=== PATIENT | female | born 1995 | race Caucasian/White ===

== ENCOUNTER → 2018-01-30 13:41 | Outpatient (CLI) | payer OTHER, SELFPAY ==
[2018-01-31 16:42] LABS: HPV Reflexed? NOT INDICATED
== END ==
PROVIDERS: Family Provider Nurse Practitioner Primary Care; PCP Nurse Practitioner Primary Care; Visit Provider Obstetrics & Gynecology
DX: Z12.4 Encounter for screening for malignant neoplasm of cervix (principal)
CPT/HCPCS: 88175; G0145

== ENCOUNTER → 2018-06-19 11:17 | Outpatient (CLI) | payer OTHER, SELFPAY ==
[2017-02-14 22:56] VITALS: BMI 28.3
[2018-06-19 14:12] LABS: ALB/GLOB Ratio 1.1 RATIO (0.9-2.4); AST(SGOT) 27 U/L (15-37); Alanine Aminotransfer ALT/SGPT 62 U/L (13-56); Albumin, Serum 4.1 g/dL (3.2-5.0); Alkaline Phosphatase 90 U/L (45-117); Anion Gap 7 (5-15); BUN 8 mg/dL (7-18); BUN/Creat Ratio 11.1 RATIO (10-20); Calcium,Total 9.1 mg/dL (8.5-10.1); Chloride 105 mmol/L (98-107); Creatinine, Serum 0.72 mg/dL (0.55-1.02); EST Glomerular Filtration Rate 108 mL/min (>60); Est Glom Filt Rate - Afr Amer 130 mL/min (>60); Globulin 3.6 g/dL (2.2-4.2); Glucose 98 mg/dL (74-106); Potassium 3.9 mmol/L (3.5-5.1); Protein, Total 7.7 g/dL (6.4-8.2); Sodium Level 137 mmol/L (136-145)
== END ==
PROVIDERS: Visit Provider Obstetrics & Gynecology
DX: D18.01 Hemangioma of skin and subcutaneous tissue (principal)
CPT/HCPCS: 36415; 80053

== ENCOUNTER → 2018-07-20 10:17 | Outpatient (CLI) | payer OTHER, SELFPAY ==
[2017-02-14 22:56] VITALS: BMI 28.3
[2018-07-20 11:06] LABS: AST(SGOT) 23 U/L (15-37); Alanine Aminotransfer ALT/SGPT 34 U/L (13-56); Alkaline Phosphatase 75 U/L (45-117); Bilirubin, Direct 0.13 mg/dL (0.00-0.30); Globulin 3.4 g/dL (2.2-4.2); Glucose 80 mg/dL (74-106); Protein, Total 7.4 g/dL (6.4-8.2)
[2018-07-20 11:10] LABS: Insulin 8.5 mU/L (2.6-37.6)
== END ==
PROVIDERS: Visit Provider Obstetrics & Gynecology
DX: R79.89 Other specified abnormal findings of blood chemistry (principal)
CPT/HCPCS: 36415; 80076; 82947; 83525

== ENCOUNTER → 2018-11-25 | Outpatient (CLI) | payer OTHER, SELFPAY ==
[2018-11-24 12:54] VITALS: BMI 27.4
[2018-11-25 15:07] LABS: Mucous, Urine 0 SEEN /hpf (<or=2+)
[2018-11-25 15:14] LABS: Color, Urine Yellow (Yellow); Glucose, Dipstick Normal (Normal); Ketone-Dipstick Negative (Negative); Leukocyte Esterase-Dipstick 25 /ul (Negative); Nitrite-Dipstick Negative (Negative); Occult Blood-Urine 50 /ul (Negative); Protein-Dipstick Negative (Negative); Urine Bilirubin Dipstick Negative (Negative); Urine Clarity Sl. Cloudy (Clear); Urine Urobilinogen Normal (Normal)
[2018-11-25 15:25] LABS: Bacteria 3+ /hpf (None Seen); Red Blood Cells-Urine 5-10 SEEN /hpf (0-5); Squamous Epithelial Cells - UA 5-10 SEEN /hpf (5-10); White Blood Cells 10-25 SEEN /hpf (0-5)
== END | disposition home or self-care (01) ==
PROVIDERS: Referring Provider Physician Assistant Medical; Visit Provider Physician Assistant Medical
DX: R10.9 Unspecified abdominal pain (principal)
CPT/HCPCS: 81001; 87077; 87086; 87088; 87186

== ENCOUNTER → 2020-02-06 15:37 | Outpatient (CLI) | payer OTHER, SELFPAY ==
[2020-02-06 14:48] VITALS: BMI 30.7
[2020-02-06 16:19] LABS: Anion Gap 7 (5-15); BUN 10 mg/dL (7-18); BUN/Creat Ratio 13.6 RATIO (10-20); Calcium,Total 8.7 mg/dL (8.5-10.1); Chloride 107 mmol/L (98-107); Creatinine, Serum 0.74 mg/dL (0.55-1.02); EST Glomerular Filtration Rate 104 mL/min (>60); Est Glom Filt Rate - Afr Amer 125 mL/min (>60); Glucose 87 mg/dL (74-106); Potassium 3.8 mmol/L (3.5-5.1); Sodium Level 139 mmol/L (136-145)
== END ==
PROVIDERS: Referring Provider Internal Medicine Cardiovascular Disease; Visit Provider Internal Medicine Cardiovascular Disease
DX: Q25.1 Coarctation of aorta (principal)
CPT/HCPCS: 36415; 80048

== ENCOUNTER → 2020-02-18 14:45 | Outpatient (CLI) | payer OTHER, SELFPAY ==
[2020-02-06 14:48] VITALS: BMI 30.7
--- NOTE | 2020-02-18 14:48 | CT_ITS ---
STUDY: CT CHEST WITH CONTRAST REASON FOR EXAM: Female, 24 years old. Coarctation of the aorta. RADIATION DOSAGE (If Supplied By Facility): CTDIvol = ( 12.635 ) mGy, DLP = ( 440.44 ) mGycm TECHNIQUE: Transaxial imaging was performed following intravenous administration of 100 ml of ISOVUE-370 contrast material. Coronal and sagittal reformatted images were created. Individualized dose optimization techniques were used for this CT. COMPARISON: 05/10/16 FINDINGS: There are no pulmonary infiltrates or pleural effusions. There are no pulmonary nodules or masses. There is no pneumothorax. The heart and pericardium are within normal limits. 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 There is no thoracic lymphadenopathy. There is no evidence of thoracic aortic aneurysm. There stable mild coarctation of the aorta 1.5 cm distal to the origin of the left subclavian artery. Images through the upper abdomen demonstrate no significant abnormality. There are no destructive osseous lesions. There is no evidence of rib notching. CT/Chest WITH Contrast IMPRESSION: Stable mild coarctation of the aorta 1.5 cm distal to the left subclavian artery. No evidence of thoracic aortic aneurysm. Clear lungs. Electronically Signed: Meek Camarillo, at 22:29 EDT Tel , Service support ,
== END ==
PROVIDERS: Referring Provider Internal Medicine Cardiovascular Disease; Visit Provider Internal Medicine Cardiovascular Disease
DX: Q25.1 Coarctation of aorta (principal)
CPT/HCPCS: 71260; Q9967

== ENCOUNTER 2020-06-24 01:14 | Outpatient (RCR) | payer OTHER, SELFPAY ==
[2020-02-06 14:48] VITALS: BMI 30.7
== END 2020-07-12 23:59 ==
LOC: EMPH 01:14
PROVIDERS: Referring Provider Family Medicine Geriatric Medicine; Visit Provider Family Medicine Geriatric Medicine
DX: Z03.818 Encounter for observation for suspected exposure to other biological agents ruled out (principal)
CPT/HCPCS: 87426

== ENCOUNTER → 2020-11-04 | Outpatient (CLI) | payer OTHER, SELFPAY ==
[2020-02-06 14:48] VITALS: BMI 30.7
[2020-11-10 11:10] LABS: HPV Reflexed? NOT INDICATED
== END | disposition home or self-care (01) ==
LOC: LABSPEC 11-05 09:25
PROVIDERS: Visit Provider Obstetrics & Gynecology
DX: Z12.4 Encounter for screening for malignant neoplasm of cervix (principal)
CPT/HCPCS: 88175; G0145

== ENCOUNTER → 2021-02-23 11:05 | Outpatient (CLI) | payer OTHER, SELFPAY ==
[2021-02-23 12:06] LABS: Color, Urine Yellow (Yellow); Glucose, Dipstick Normal (Normal); Ketone-Dipstick Negative (Negative); Leukocyte Esterase-Dipstick Negative /ul (Negative); Nitrite-Dipstick Negative (Negative); Occult Blood-Urine Negative /ul (Negative); Protein-Dipstick Negative (Negative); Specific Gravity, Urine 1.015 (1.002-1.030); Urine Bilirubin Dipstick Negative (Negative); Urine Clarity Sl. Cloudy (Clear); Urine Urobilinogen Normal (Normal)
[2021-02-23 12:07] LABS: Absolute Lymphocyte Count 1.91 X10^3/uL (0.83-4.51); Absolute Neutrophil Count 4.6 X10^3/uL (2.0-7.7); Basophil# 0.03 X10^3/uL; Basophil% 0.4 % (0-1); Eosinophil# 0.04 X10^3/uL; Eosinophils% 0.6 % (0-5); Hematocrit 38.2 % (37-47); Hemoglobin 12.9 g/dL (12.0-15.0); Lymphocyte # 1.91 X10^3/ul (0.83-4.51); Mean Corp Hgb Conc 33.8 g/dL (32-36); Mean Corpuscular Hgb 28.8 pg (27.0-32.0); Mean Corpuscular Volume 85.3 fL (81-99); Mean Platelet Vol. 9.7 fl (6.2-12.0); Monocyte# 0.47 X10^3/uL; Monocyte% 6.6 % (0-10); NRBC Flagged by Analyzer 0 % (0-5); Platelet Count 294 K/mm3 (150-450); RBC Distribution Width CV 12.3 % (11.6-14.6); RBC Distribution Width SD 38.2 fl (35.1-43.9); Red Blood Count 4.48 M/mm3 (4.2-5.4); White Blood Count 7.1 K/mm3 (4.4-11.0)
[2021-02-23 12:17] LABS: Amphetamine Urine VISTA NEGATIVE (<1000 ng/mL); Barbiturate Urine VISTA NEGATIVE (< 200 ng/mL); Benzodiazepine Urine VISTA NEGATIVE (< 200 ng/mL); Cocaine Urine VISTA NEGATIVE (< 300 ng/mL); Ecstacy Urine VISTA NEGATIVE (< 500 ng/mL); Methadone Urine VISTA NEGATIVE (< 300 ng/mL); PCP Urine VISTA NEGATIVE (< 25 ng/mL); THC Urine VISTA NEGATIVE (< 50 ng/mL); Vista UDS pH Range 6
[2021-02-23 12:23] LABS: Thyroid Stim Hormone (TSH) 2.31 uIU/mL (0.358-3.74)
[2021-02-23 12:53] LABS: HIV - WCH Non-Reactive (Nonreactive); Hepatitis B Surface Antigen Non-Reactive (Nonreactive); Hepatitis C Antibody Non-Reactive (Nonreactive); Rubella IgG Reactive (Nonreactive); Syphilis Antibodies Non-reactive
[2021-02-25 07:08] LABS: Chlamydia By Nucleic Acid AMP Negative (Negative)
[2021-02-25 21:05] LABS: Gonococcus By Nucleic Acid AMP Negative (Negative)
== END ==
PROVIDERS: PCP Family Medicine; Visit Provider Obstetrics & Gynecology
DX: Z34.81 Encounter for supervision of other normal pregnancy, first trimester (principal); Z11.3 Encounter for screening for infections with a predominantly sexual mode of transmission
CPT/HCPCS: 36415; 80307; 81002; 84443; 85025; 86703; 86762; 86780; 86803; 87086; 87340; 87491; 87591

== ENCOUNTER → 2021-03-12 09:46 | Outpatient (CLI) | payer OTHER, SELFPAY ==
--- NOTE | 2021-03-12 09:47 | ECHOD_ITS ---
Reason For Study: ASD Repair Procedure This was a 2D Doppler, Color Flow transthoracic echocardiogram. Exam performed in department. Left Ventricle Normal LV size. Left ventricular systolic function is normal. The estimated ejection fraction is 55 %. Normal diastology for age. No regional wall motion abnormalities noted. Right Ventricle Normal RV size. Normal systolic function. Atria Normal left atrium. Normal right atrium. Tricuspid Valve Normal tricuspid valve. Aortic Valve Normal aortic valve. Trisinus/trileaflet aortic valve. Pulmonic Valve Normal pulmonic valve. Great Vessels Normal aortic root. Aortic coarctation is present. Approximately 20 mmHg across the coarctation. The pulmonary artery is normal size. Normal inferior vena cava. Pericardium/Pleural No pericardial effusion. MMode/2D Measurements & Calculations LVIDd: 4.6 cm IVSd: 0.82 cm Ao root diam: 2.4 cm LVIDs: 2.8 cm LVPWd: 0.89 cm RVDd: 3.5 cm FS: 40.5 % LAV(MOD-bp): 53.2 ml LVAd ap4: 29.7 cm2 SV(MOD-sp4): 55.2 ml LAV(MOD-bp) Indexed: 29.6 ml/m2 LVLd ap4: 8.1 cm LAV(MOD-sp2): 54.4 ml EDV(MOD-sp4): 91.2 ml LAV(MOD-sp4): 52.0 ml EDV(sp4-el): 92.1 ml LVAs ap4: 16.8 cm2 LVLs ap4: 6.7 cm ESV(MOD-sp4): 36.0 ml ESV(sp4-el): 36.1 ml EF(MOD-sp4): 60.5 % EF(sp4-el): 60.8 % SV(sp4-el): 56.0 ml LA dimension(2D): 3.5 cm LA A4 area: 17.9 cm2 RA A4 area: 14.6 cm2 Doppler Measurements & Calculations MV E max jesus: 117.5 cm/sec Lat Peak E' Jesus: 18.0 cm/sec Med Peak E' Jesus: 10.7 cm/sec MV A max jesus: 50.3 cm/sec E/E' lat: 6.5 E/E' med: 10.9 MV E/A: 2.3 Ao V2 max: 155.2 cm/sec LV V1 max: 135.0 cm/sec PA V2 max: 83.7 cm/sec Ao max P.6 mmHg LV V1 max P.3 mmHg TR max jesus: 179.3 cm/sec TR max P.9 mmHg ECHO/Echo Complete Interpretation Summary Normal LV size. Left ventricular systolic function is normal. The estimated ejection fraction is 55 %. Aortic coarctation is present. Approximately 20 mmHg across the coarctation. Ordering Physician: Ashly Grubbs Referring Physician: Brook Negro Performed By: Snehal Preston RDCS
== END ==
PROVIDERS: PCP Family Medicine; Referring Provider Obstetrics & Gynecology; Visit Provider Obstetrics & Gynecology
DX: Q25.1 Coarctation of aorta (principal); I51.9 Heart disease, unspecified
CPT/HCPCS: 93306

== ENCOUNTER → 2021-03-23 07:52 | Outpatient (CLI) | payer OTHER, SELFPAY ==
--- NOTE | 2021-03-23 08:35 | US_ITS ---
STUDY: FIRST TRIMESTER OBSTETRICAL ULTRASOUND REASON FOR EXAM: Female, 25 years old LMP: 01/07/2021. TECHNIQUE: Transabdominal TECHNICAL QUALITY: Adequate. PRIOR ULTRASOUND: None. FINDINGS: There is visualization of a single gestational sac in a normal intrauterine position. The mean sac diameter (MSD) measures 5.98 cm. The gestational sac shape is within normal limits. There is no demonstrated yolk sac. The placenta is non-visualized. There is visualization of a live embryo. The crown-rump length (CRL) measures 4.12 cm, indicating an estimated gestational age (EGA) of 11 weeks, 0 days. There is demonstrated cardiac activity with a heart rate of 170 bpm. The estimated gestation age (EGA) by LMP is 10 weeks, 5 days. The estimated date of delivery (NAMITA) by LMP is 10/14/2021. The estimated gestation age (EGA) by US is 11 weeks, 0 days. The estimated date of delivery (NAMITA) by US is 10/12/2021. The uterus measures 11.1 cm x 10.5 cm x 6.4 cm. There is no demonstrated uterine fibroid. The cervix is closed. The right ovary was not visualized. The left ovary measures 3 cm x 2.6 cm x 1.5 cm. There is no left ovarian cyst. There is no visualized left adnexal mass or complex lesion. There is no fluid in the cul de sac. US/Init OB < 14Wks US IMPRESSION: Single live intrauterine gestation with a mean gestational age of 11 weeks. Electronically Signed: Conrad Root MD at 15:29 EDT , Service support ,
== END ==
PROVIDERS: PCP Family Medicine; Referring Provider Obstetrics & Gynecology; Visit Provider Obstetrics & Gynecology
DX: Z34.81 Encounter for supervision of other normal pregnancy, first trimester (principal)
CPT/HCPCS: 76801

== ENCOUNTER 2021-07-16 09:32 | Outpatient (CLI) | payer OTHER, SELFPAY ==
[2021-07-16 10:08] LABS: Hemoglobin 12.2 g/dL (12.0-15.0); Mean Corp Hgb Conc 34.9 g/dL (32-36); Mean Corpuscular Volume 86.2 fL (81-99); Mean Platelet Vol. 9.8 fl (6.2-12.0); Platelet Count 285 K/mm3 (150-450); RBC Distribution Width CV 12.6 % (11.6-14.6); RBC Distribution Width SD 39.7 fl (35.1-43.9); Red Blood Count 4.06 M/mm3 (4.2-5.4); White Blood Count 12.8 K/mm3 (4.4-11.0)
[2021-07-16 10:13] LABS: Glucose Challenge Gest 1H 50g 94 mg/dL (70-140)
== END 2021-07-16 23:59 | disposition short-term general hospital (02) ==
LOC: WOBLAB 09:35
PROVIDERS: PCP Family Medicine; Visit Provider Obstetrics & Gynecology
DX: Z34.82 Encounter for supervision of other normal pregnancy, second trimester (principal)
CPT/HCPCS: 36415; 82950; 85027

== ENCOUNTER 2021-07-21 12:21 | Outpatient (CLI) | payer OTHER, SELFPAY ==
--- NOTE | 2021-07-21 12:25 | US_ITS ---
STUDY: SECOND AND THIRD TRIMESTER OBSTETRICAL ULTRASOUND REASON FOR EXAM: Female, 25 years old GROWTH LMP: 01/07/2021. TECHNIQUE: Transabdominal TECHNICAL QUALITY: Adequate. PRIOR ULTRASOUND: Comparison is made with prior study dated 03/23/2021. FINDINGS: There is a single intrauterine fetus. The fetus is in a cephalic presentation. There is demonstrated cardiac activity with a heart rate of 147 bpm. There is a normal amniotic fluid volume. The largest amniotic fluid pocket measures 6.69 cm. The amniotic fluid index (ELVIS) is 18.2 to cm. The placenta is posterior in location and is not low lying. There are Grade 1 placental changes. The cervix measures 6 cm in length. The adnexal regions are not visualized. BIOMETRY: BPD: 7.04 cm: 28 weeks, 1 days HC: 26.41 cm: 28 weeks, 5 days AC: 23.67 cm: 27 weeks, 6 days FL: 5.15 cm: 27 weeks, 3 days CI: 77.6% FL/BPD: 73.2% FL/HC: FL/AC: 21.8% HC/AC: 1.12 age by current US: 28 weeks, 0 days. NAMITA by current US: 10/13/2021. Estimated weight: 1149 grams, +/- 172 grams, 40.4 %. age by prior US: 28 weeks, 1 days. NAMITA by prior US: 10/12/2021. Age by LMP: 27 weeks, 6 days. NAMITA by LMP: 10/14/2021. US/OB Limited With Biometrics IMPRESSION: Single live intrauterine gestation with a mean gestational age of 28 weeks and 1 day. The measurement obtained today fall within the normal expected range. Electronically Signed: Conrad Root MD at 8:52 EST ,
== END 2021-07-21 23:59 | disposition home or self-care (01) ==
LOC: OPUS 12:22
PROVIDERS: PCP Family Medicine; Referring Provider Obstetrics & Gynecology; Visit Provider Obstetrics & Gynecology
DX: O99.892 Other specified diseases and conditions complicating childbirth (principal); Q21.1 Atrial septal defect; Q25.1 Coarctation of aorta; Z3A.00 Weeks of gestation of pregnancy not specified
CPT/HCPCS: 76816

== ENCOUNTER 2021-08-18 13:49 | Outpatient (CLI) | payer OTHER, SELFPAY ==
--- NOTE | 2021-08-18 13:52 | ECHOD_ITS ---
Reason For Study: Procedure This was a 2D Doppler, Color Flow transthoracic echocardiogram. Exam performed in department. Left Ventricle Normal LV size. Left ventricular systolic function is normal. The estimated ejection fraction is 60 %. Normal diastology for age. No regional wall motion abnormalities noted. Right Ventricle Normal RV size. Normal systolic function. Atria Normal left atrium. Normal right atrium. Mitral Valve Normal mitral valve. Tricuspid Valve Normal tricuspid valve. Aortic Valve Trisinus/trileaflet aortic valve. Pulmonic Valve Normal pulmonic valve. Great Vessels Normal aortic root. Mild coarctation noted post subclavian. Pericardium/Pleural No pericardial effusion. MMode/2D Measurements & Calculations LVIDd: 5.0 cm IVSd: 0.74 cm Ao root diam: 2.7 cm LVIDs: 3.3 cm LVPWd: 0.92 cm RVDd: 4.4 cm FS: 33.7 % LAV(MOD-bp): 59.1 ml LVAd ap4: 32.3 cm2 SV(MOD-sp4): 65.6 ml LAV(MOD-bp) Indexed: 31.2 ml/m2 LVLd ap4: 7.9 cm LAV(MOD-sp2): 55.6 ml EDV(MOD-sp4): 109.9 ml LAV(MOD-sp4): 56.4 ml EDV(sp4-el): 112.6 ml LVAs ap4: 18.2 cm2 LVLs ap4: 6.2 cm ESV(MOD-sp4): 44.3 ml ESV(sp4-el): 45.1 ml EF(MOD-sp4): 59.7 % EF(sp4-el): 60.0 % SV(sp4-el): 67.6 ml LA A4 area: 20.2 cm2 LA dimension(2D): 3.8 cm RA A4 area: 18.2 cm2 Time Measurements MV dec time: 0.25 sec Doppler Measurements & Calculations MV E max jesus: 122.7 cm/sec Lat Peak E' Jesus: 22.3 cm/sec Med Peak E' Jesus: 15.4 cm/sec MV A max jesus: 73.8 cm/sec E/E' lat: 5.5 E/E' med: 8.0 MV E/A: 1.7 Ao V2 max: 167.5 cm/sec LV V1 max: 144.1 cm/sec PA V2 max: 103.8 cm/sec Ao max P.2 mmHg LV V1 max P.3 mmHg ECHO/Echo Complete Interpretation Summary Normal LV size. Left ventricular systolic function is normal. The estimated ejection fraction is 60 %. Mild coarctation noted post subclavian. Structurally normal valves. Ordering Physician: Ashly Grubbs Referring Physician: GREGG MILLARD Performed By: Taryn Aleman RDCS
== END 2021-08-18 23:59 | disposition home or self-care (01) ==
LOC: CVS 13:50
PROVIDERS: PCP Family Medicine; Referring Provider Obstetrics & Gynecology; Visit Provider Obstetrics & Gynecology
DX: Z34.83 Encounter for supervision of other normal pregnancy, third trimester (principal); Z87.74 Personal history of (corrected) congenital malformations of heart and circulatory system
CPT/HCPCS: 93306

== ENCOUNTER 2021-08-20 12:20 | Outpatient (CLI) | payer OTHER, SELFPAY ==
--- NOTE | 2021-08-20 12:22 | US_ITS ---
STUDY: SECOND AND THIRD TRIMESTER OBSTETRICAL ULTRASOUND - LIMITED REASON FOR EXAM: Female, 25 years old LMP: 12/31/2020. PRIOR ULTRASOUND: Comparison is made with prior study dated 07/21/2021. TECHNIQUE: Transabdominal TECHNICAL QUALITY: Adequate. FINDINGS: There is a single intrauterine fetus. The fetus is in a cephalic presentation. There is demonstrated cardiac activity with a heart rate of 132 bpm. There is a normal amniotic fluid volume. The largest amniotic fluid pocket measures 6.75 cm. The amniotic fluid index (ELVIS) is 18.65 cm. The placenta is fundal in location. There are Grade 1 placental changes. The cervix measures 3.6 cm in length. BIOMETRY: BPD: 8.147: 32 weeks, 5 days HC: 30.16 cm: 33 weeks, 3 days AC: 28.88 cm: 32 weeks, 6 days FL: 5.96 cm: 31 weeks, 0 days Age by LMP: 32 weeks, 1 days. NAMITA by LMP: 10/14/2021. age by prior US: 32 weeks, 2 days. NAMITA by prior US: 10/13/2021. age by current US: 32 weeks, 4 days. NAMITA by current US: 10/11/2021. Estimated weight: 1970 grams, +/- 295 grams, 48 percentile. US/OB Limited With Biometrics IMPRESSION: Single live uterine gestation with a mean gestational age of 32 weeks and 2 days. The measurements obtained today fall within the normal expected range Electronically Signed: Conrad Root MD at 14:48 EST ,
== END 2021-08-20 23:59 | disposition home or self-care (01) ==
LOC: US 12:21
PROVIDERS: PCP Family Medicine; Referring Provider Obstetrics & Gynecology; Visit Provider Obstetrics & Gynecology
DX: Z34.83 Encounter for supervision of other normal pregnancy, third trimester (principal)
CPT/HCPCS: 76816

== ENCOUNTER 2021-08-24 18:15 | Outpatient (CLI) | payer OTHER, SELFPAY ==
[2021-08-24 18:39] VITALS: BP 122/75; PULSE 86; TEMP 36.9; O2SAT 98
[2021-08-24 18:41] VITALS: BMI 33.0
--- NOTE | 2021-08-24 20:00 | OB.TRI.NOTE ---
HPI - General HPI Narrative MADDISON ADAIR, is a 25 F G1 who presents at 32 5/7 weeks gestation for scheduled NST. She has a hx aortic coarctation and ASD post repair. PFSH PFSH Medical History (Updated 08/29/21 @ 08:[address] Ashly Pickard MD) ASD (atrial septal defect) Coarctation of aorta Obesity Home Medications vitamin no.102-iron 90 mg-folate 1 mg-dha 200 mg capsule 1 cap PO DAILY 02/06/20 [History Last Taken 08/24/21] aspirin 81 mg tablet,delayed release 81 mg PO DAILY 03/19/21 [History Last Taken 08/24/21] calcium 500 mg PO DAILY 08/24/21 [History Last Taken 08/24/21] famotidine [Pepcid] 10 mg PO DAILY 08/24/21 [History Last Taken Unknown] Allergy/AdvReac Type Severity Reaction Status Date / Time latex AdvReac Itching Verified 08/24/21 18:42 Family History Mother Hypertension Surgical History H/O atrial septal defect repair (2002) History of wisdom tooth extraction Social History (Updated 08/29/21 @ 08:[address] Ashly Pickard MD) Smoking Status: Never smoker alcohol intake: never details: not during History 1 Elective abortions Hx Para Spontaneous abortions Hx # Term Pregnancies Ectopic pregnancies Hx # Pregnancies Multiple births # of living children NST FHR Rate Baby A Baseline: 130 Variability:: Moderate Accelerations:: 15 x 15 Decelerations:: None NST Reactive:: Appropriate for gestational age and Non-Reactive FHR Category:: Category I Uterine Activity:: 0/10 Assessment & Plan (1) 32 weeks gestation of : PLAN: Cat I FHR, reassuring d/c home, continue weekly NST
== END 2021-08-24 23:59 | disposition home or self-care (01) ==
LOC: WPOUT 18:35 → WP 18:35
PROVIDERS: PCP Family Medicine; Visit Provider Obstetrics & Gynecology
DX: O99.213 Obesity complicating pregnancy, third trimester (principal); Z3A.32 32 weeks gestation of pregnancy; Z79.82 Long term (current) use of aspirin; E66.9 Obesity, unspecified; Z87.74 Personal history of (corrected) congenital malformations of heart and circulatory system
CPT/HCPCS: 59025

== ENCOUNTER 2021-09-01 11:55 | Outpatient (CLI) | payer OTHER, SELFPAY ==
[2021-09-01 12:01] VITALS: BMI 33.3
[2021-09-01 12:04] VITALS: BP 124/77; PULSE 76; TEMP 36.2
--- NOTE | 2021-09-18 00:11 | OB.TRI.NOTE ---
HPI - General HPI Narrative MADDISON ADAIR, is a 26 F who presents for scheduled NST. Maternal Data Information NAMITA Calculator Estimated Delivery Date Method Current WG Current Estimate 10/14/21 Manual 38w 5d PFSH [facility] Medical History (Updated 10/05/21 @ 19:[address] Ashly Pickard MD) ASD (atrial septal defect) Cardiology follow-up encounter Coarctation of aorta Gastric reflux High cholesterol History of echocardiogram History of edema History of stress test Non-smoker Obesity Home Medications vitamin no.102-iron 90 mg-folate 1 mg-dha 200 mg capsule 1 cap PO DAILY 02/06/20 [History Last Taken 10/04/21 21:00] aspirin 81 mg tablet,delayed release 81 mg PO DAILY 03/19/21 [History Last Taken 10/04/21 21:00] calcium 500 mg PO DAILY 08/24/21 [History Last Taken 10/04/21 21:00] famotidine [Pepcid] 10 mg PO DAILY 08/24/21 [History Last Taken 10/04/21 21:00] Allergy/AdvReac Type Severity Reaction Status Date / Time latex AdvReac Itching Verified 10/05/21 18:07 Family History Mother Hypertension Surgical History (Updated 09/08/21 @ 13:28 by Kenya Spain) H/O atrial septal defect repair (2002) History of cardiac catheterization History of wisdom tooth extraction Social History (Updated 08/29/21 @ 08:[address] Ashly Pickard MD) Smoking Status: Never smoker alcohol intake: never details: not during History 1 Elective abortions Hx Para Spontaneous abortions Hx # Term Pregnancies Ectopic pregnancies Hx # Pregnancies Multiple births # of living children NST FHR Rate Baby A Baseline: 125 Accelerations:: 15 x 15 Decelerations:: None NST Reactive:: Yes FHR Category:: Category I Uterine Activity:: 0 Assessment & Plan (1) : QUALIFIERS: Weeks of gestation: 35 weeks Qualified Code(s): Z3A.35 - 35 weeks gestation of COMMENT: 35wga PLAN: Cat I FHR d/c home
== END 2021-09-01 23:59 | disposition home or self-care (01) ==
LOC: WPOUT 12:00 → WP 12:00
PROVIDERS: PCP Family Medicine; Referring Provider Obstetrics & Gynecology; Visit Provider Obstetrics & Gynecology
DX: O99.613 Diseases of the digestive system complicating pregnancy, third trimester (principal); K21.9 Gastro-esophageal reflux disease without esophagitis; O99.213 Obesity complicating pregnancy, third trimester; E66.9 Obesity, unspecified; Z79.82 Long term (current) use of aspirin; Z3A.35 35 weeks gestation of pregnancy
CPT/HCPCS: 59025

== ENCOUNTER 2021-09-09 17:45 | Outpatient (CLI) | payer OTHER, SELFPAY ==
[2021-09-09 18:05] VITALS: BP 134/80; PULSE 87; TEMP 36.4
--- NOTE | 2021-09-09 18:37 | OB.TRI.NOTE ---
HPI - General HPI Narrative MADDISON ADAIR, is a 26 F who presents for NST [facility] Medical History (Updated 09/10/21 @ 08:[address] Turner Hoang MD) ASD (atrial septal defect) Cardiology follow-up encounter Coarctation of aorta Gastric reflux High cholesterol History of echocardiogram History of edema History of stress test Non-smoker Obesity Home Medications vitamin no.102-iron 90 mg-folate 1 mg-dha 200 mg capsule 1 cap PO DAILY 02/06/20 [History Last Taken 08/31/21] aspirin 81 mg tablet,delayed release 81 mg PO DAILY 03/19/21 [History Last Taken 08/31/21] calcium 500 mg PO DAILY 08/24/21 [History Last Taken 08/31/21] famotidine [Pepcid] 10 mg PO DAILY 08/24/21 [History Last Taken 08/31/21] Allergy/AdvReac Type Severity Reaction Status Date / Time latex AdvReac Itching Verified 09/08/21 13:21 Family History Mother Hypertension Surgical History (Updated 09/08/21 @ 13:28 by Kenya Spain) H/O atrial septal defect repair (2002) History of cardiac catheterization History of wisdom tooth extraction Social History (Updated 08/29/21 @ 08:[address] Ashly Pickard MD) Smoking Status: Never smoker alcohol intake: never details: not during History 1 Elective abortions Hx Para Spontaneous abortions Hx # Term Pregnancies Ectopic pregnancies Hx # Pregnancies Multiple births # of living children NST FHR Rate Baby A Baseline: 130 Variability:: Moderate Accelerations:: 15 x 15 Decelerations:: None NST Reactive:: Yes Uterine Activity:: quiet Assessment & Plan (1) : PLAN: Patient arrives for scheduled NST, reactive. Okay to discharge home
== END 2021-09-09 23:59 | disposition home or self-care (01) ==
LOC: WPOUT 17:52 → WP 17:53
PROVIDERS: PCP Family Medicine; Visit Provider Obstetrics & Gynecology
DX: O99.891 Other specified diseases and conditions complicating pregnancy (principal); Q21.1 Atrial septal defect; Z79.82 Long term (current) use of aspirin; O99.619 Diseases of the digestive system complicating pregnancy, unspecified trimester; K21.9 Gastro-esophageal reflux disease without esophagitis; Z3A.00 Weeks of gestation of pregnancy not specified
CPT/HCPCS: 59025; 59050; 99218; G0378

== ENCOUNTER 2021-09-14 17:00 | Outpatient (CLI) | payer OTHER, SELFPAY ==
[2021-09-14] VITALS (9 sets, daily range): BP systolic 125–142; BP diastolic 68–83; PULSE 71–86; BMI 33.7
[2021-09-14 17:52] LABS: Hematocrit 35.5 % (37-47); Hemoglobin 12.2 g/dL (12.0-15.0); Mean Corp Hgb Conc 34.4 g/dL (32-36); Mean Corpuscular Hgb 28.6 pg (27.0-32.0); Mean Corpuscular Volume 83.1 fL (81-99); Mean Platelet Vol. 9.9 fl (6.2-12.0); Platelet Count 251 K/mm3 (150-450); RBC Distribution Width CV 12.5 % (11.6-14.6); RBC Distribution Width SD 37.5 fl (35.1-43.9); Red Blood Count 4.27 M/mm3 (4.2-5.4); White Blood Count 12.5 K/mm3 (4.4-11.0)
[2021-09-14] MEDS: Lactated Ringers 1,000 ML 250 ML IV (18:00)
[2021-09-14 18:01] LABS: International Normalized Ratio 0.9; Partial Thromboplast Time 26.1 Seconds (24.1-36.2); Prothrombin Time (Protime)PT. 11.8 SECONDS (11.7-14.9)
[2021-09-14 18:07] LABS: Protein, Urine (Random) < 6.0 mg/dL (<11.9)
[2021-09-14 18:38] LABS: AST(SGOT) 22 U/L (15-37); Alanine Aminotransfer ALT/SGPT 25 U/L (13-56); EST Glomerular Filtration Rate 159 mL/min (>60); Est Glom Filt Rate - Afr Amer 192 mL/min (>60); Estimated Creatinine Clearance 148.53 ml/min; LDH 201 U/L (84-246); Uric Acid 4.7 mg/dL (2.6-6.0)
--- NOTE | 2021-09-15 07:13 | OB.TRI.NOTE ---
HPI - General HPI Narrative MADDISON ADAIR, is a 26 F at 35 5/7wga (NAMITA 10/24/21) who presents for BP monitoring. She was sent from the office for elevated BPs. Denies headache, vision changes or abdominal pain. PFSH [facility] Medical History (Updated 09/15/21 @ 07:[address] Ashly Pickard MD) ASD (atrial septal defect) Cardiology follow-up encounter Coarctation of aorta Gastric reflux High cholesterol History of echocardiogram History of edema History of stress test Non-smoker Obesity Home Medications vitamin no.102-iron 90 mg-folate 1 mg-dha 200 mg capsule 1 cap PO DAILY 02/06/20 [History Last Taken 09/13/21] aspirin 81 mg tablet,delayed release 81 mg PO DAILY 03/19/21 [History Last Taken 09/13/21 81 mg] calcium 500 mg PO DAILY 08/24/21 [History Last Taken 09/13/21] famotidine [Pepcid] 10 mg PO DAILY 08/24/21 [History Last Taken 09/13/21 20 mg] Allergy/AdvReac Type Severity Reaction Status Date / Time latex AdvReac Itching Verified 09/08/21 13:21 Family History Mother Hypertension Surgical History (Updated 09/08/21 @ 13:28 by Kenya Spain) H/O atrial septal defect repair (2002) History of cardiac catheterization History of wisdom tooth extraction Social History (Updated 08/29/21 @ 08:[address] Ashly Pickard MD) Smoking Status: Never smoker alcohol intake: never details: not during History 1 Elective abortions Hx Para Spontaneous abortions Hx # Term Pregnancies Ectopic pregnancies Hx # Pregnancies Multiple births # of living children NST FHR Rate Baby A Baseline: 130 Variability:: Moderate Accelerations:: 15 x 15 Decelerations:: None NST Reactive:: Yes FHR Category:: Category I Uterine Activity:: irritability Assessment & Plan (1) : QUALIFIERS: Weeks of gestation: 35 weeks Qualified Code(s): Z3A.35 - 35 weeks gestation of PLAN: Cat I FHR, status reassuring (2) Elevated blood pressure reading without diagnosis of hypertension: PLAN: Labs for preeclampsia negative D/C home f/u next week
== END 2021-09-14 19:11 | disposition home or self-care (01) ==
LOC: WPOUT 17:10 → WP 17:10
PROVIDERS: PCP Family Medicine; Referring Provider Obstetrics & Gynecology; Visit Provider Obstetrics & Gynecology
DX: O26.893 Other specified pregnancy related conditions, third trimester (principal); Z3A.35 35 weeks gestation of pregnancy; R03.0 Elevated blood-pressure reading, without diagnosis of hypertension; O99.613 Diseases of the digestive system complicating pregnancy, third trimester; K21.9 Gastro-esophageal reflux disease without esophagitis; O99.213 Obesity complicating pregnancy, third trimester; E66.9 Obesity, unspecified; Z79.82 Long term (current) use of aspirin; Z87.74 Personal history of (corrected) congenital malformations of heart and circulatory system
CPT/HCPCS: 96360; 96361 ×12; 36415; 59025; 59050; 82565; 82570; 83615; 84156; 84450; 84460; 84550; 85027; 85610; 85730; 99218; J7120; G0378

== ENCOUNTER 2021-09-16 14:27 | Outpatient (CLI) | payer OTHER, SELFPAY ==
--- NOTE | 2021-09-16 14:31 | US_ITS ---
STUDY: SECOND AND THIRD TRIMESTER OBSTETRICAL ULTRASOUND - LIMITED REASON FOR EXAM: Female, 26 years old GROWTH LMP: 01/07/2021. PRIOR ULTRASOUND: Comparison is made with prior study dated 08/20/2021. TECHNIQUE: Transabdominal TECHNICAL QUALITY: Adequate. FINDINGS: There is a single intrauterine fetus. The fetus is in a cephalic presentation. There is demonstrated cardiac activity with a heart rate of 132 bpm. There is a normal amniotic fluid volume. The largest amniotic fluid pocket measures 4.3 cm. The amniotic fluid index (ELVIS) is 12.1 cm. The placenta is posterior in location and is not low lying. There are Grade 1 placental changes. BIOMETRY: BPD: 9 cm: 36 weeks, 2 days HC: 32.3 cm: 36 weeks, 3 days AC: 31.7 cm: 35 weeks, 4 days FL: 7.1 cm: 36 weeks, 1 days Age by LMP: 36 weeks, 0 days. NAMITA by LMP: 10/14/2021.. age by prior US: 36 weeks, 3 days. NAMITA by prior US: 10/11/2021.. age by current US: 36 weeks, 0 days. NAMITA by current US: 10/14/2021. Estimated weight: 2838 grams, +/- 427 grams, 53 percentile. US/OB Limited With Biometrics IMPRESSION: Single live uterine gestation with a mean gestational age of 36 weeks. Electronically Signed: Conrad Root MD at 15:04 EDT ,
== END 2021-09-16 23:59 | disposition home or self-care (01) ==
PROVIDERS: PCP Family Medicine; Visit Provider Obstetrics & Gynecology
DX: Z34.83 Encounter for supervision of other normal pregnancy, third trimester (principal)
CPT/HCPCS: 76816

== ENCOUNTER 2021-09-21 14:32 | Outpatient (CLI) | payer OTHER, SELFPAY | END 2021-09-21 23:59 | disposition home or self-care (01) | LOC: LABSPEC 14:46 | PROVIDERS: PCP Family Medicine; Visit Provider Obstetrics & Gynecology | DX: Z36.85 Encounter for antenatal screening for Streptococcus B (principal) | CPT/HCPCS: 87081 ==

== ENCOUNTER 2021-09-22 17:40 | Outpatient (CLI) | payer OTHER, SELFPAY ==
[2021-09-22 17:55] VITALS: BMI 33.7
[2021-09-22 18:01] VITALS: BP 137/78; PULSE 81; TEMP 36.5
[2021-09-22 18:31] VITALS: BP 130/70; PULSE 70
--- NOTE | 2021-09-26 09:05 | OB.TRI.HP_ITS ---
HPI - General HPI Narrative MADDISON ADAIR, is a 26 F who presents for nonstress test for hypertension. Patient denies any PIH symptoms. She is at 36 weeks 6 days gestation. [facility] Medical History (Updated 09/15/21 @ 07:[address] Ashly Pickard MD) ASD (atrial septal defect) Cardiology follow-up encounter Coarctation of aorta Gastric reflux High cholesterol History of echocardiogram History of edema History of stress test Non-smoker Obesity Home Medications vitamin no.102-iron 90 mg-folate 1 mg-dha 200 mg capsule 1 cap PO DAILY 02/06/20 [History Last Taken 09/13/21] aspirin 81 mg tablet,delayed release 81 mg PO DAILY 03/19/21 [History Last Taken 09/13/21 81 mg] calcium 500 mg PO DAILY 08/24/21 [History Last Taken 09/13/21] famotidine [Pepcid] 10 mg PO DAILY 08/24/21 [History Last Taken 09/13/21 20 mg] Allergy/AdvReac Type Severity Reaction Status Date / Time latex AdvReac Itching Verified 09/08/21 13:21 Family History Mother Hypertension Surgical History (Updated 09/08/21 @ 13:28 by Kenya Spain) H/O atrial septal defect repair (2002) History of cardiac catheterization History of wisdom tooth extraction Social History (Updated 08/29/21 @ 08:[address] Ashly Pickard MD) Smoking Status: Never smoker alcohol intake: never details: not during History 1 Elective abortions Hx Para Spontaneous abortions Hx # Term Pregnancies Ectopic pregnancies Hx # Pregnancies Multiple births # of living children NST FHR Rate Baby A NST Reactive:: Yes FHR Category:: Category I Assessment & Plan (1) Elevated blood pressure reading without diagnosis of hypertension: PLAN: 36+ week IUP with hypertension for routine nonstress test. NST reactive. Routine follow-up in the office.
== END 2021-09-22 23:59 | disposition home or self-care (01) ==
LOC: WP 17:52 → WPOUT 17:52
PROVIDERS: Visit Provider Obstetrics & Gynecology
DX: O26.893 Other specified pregnancy related conditions, third trimester (principal); R03.0 Elevated blood-pressure reading, without diagnosis of hypertension; Z3A.36 36 weeks gestation of pregnancy; O99.613 Diseases of the digestive system complicating pregnancy, third trimester; K21.9 Gastro-esophageal reflux disease without esophagitis; Z79.82 Long term (current) use of aspirin; O99.213 Obesity complicating pregnancy, third trimester; E66.9 Obesity, unspecified
CPT/HCPCS: 59025; 59050; 99218; G0378

== ENCOUNTER 2021-09-30 17:45 | Outpatient (CLI) | payer OTHER, SELFPAY ==
[2021-09-30 17:58] VITALS: BMI 34.8
--- NOTE | 2021-10-05 09:00 | OB.TRI.NOTE ---
HPI - General HPI Narrative MADDISON ADAIR, is a 26 F who presents at 38 weeks gestation for routine nonstress test for hypertension. Maternal Data Information Final NAMITA: 10/14/21 [facility] Medical History (Updated 09/15/21 @ 07:[address] Ashly Pickard MD) ASD (atrial septal defect) Cardiology follow-up encounter Coarctation of aorta Gastric reflux High cholesterol History of echocardiogram History of edema History of stress test Non-smoker Obesity Home Medications vitamin no.102-iron 90 mg-folate 1 mg-dha 200 mg capsule 1 cap PO DAILY 02/06/20 [History Last Taken 09/30/21 17:00] aspirin 81 mg tablet,delayed release 81 mg PO DAILY 03/19/21 [History Last Taken 09/30/21 17:00] calcium 500 mg PO DAILY 08/24/21 [History Last Taken 09/30/21 17:00] famotidine [Pepcid] 10 mg PO DAILY 08/24/21 [History Last Taken 09/30/21 17:00] Allergy/AdvReac Type Severity Reaction Status Date / Time latex AdvReac Itching Verified 09/30/21 18:00 Family History Mother Hypertension Surgical History (Updated 09/08/21 @ 13:28 by Kenya Spain) H/O atrial septal defect repair (2002) History of cardiac catheterization History of wisdom tooth extraction Social History (Updated 08/29/21 @ 08:[address] Ashly Pickard MD) Smoking Status: Never smoker alcohol intake: never details: not during History 1 Elective abortions Hx Para Spontaneous abortions Hx # Term Pregnancies Ectopic pregnancies Hx # Pregnancies Multiple births # of living children NST FHR Rate Baby A NST Reactive:: Yes FHR Category:: Category I Assessment & Plan (1) Elevated blood pressure reading without diagnosis of hypertension: PLAN: 38-week intrauterine for routine nonstress test for elevated blood pressures during . Reactive nonstress test. Continue routine follow-up and care in the office.
== END 2021-09-30 18:35 | disposition home or self-care (01) ==
LOC: WPOUT 17:57 → WP 17:58
PROVIDERS: Visit Provider Obstetrics & Gynecology
DX: O26.893 Other specified pregnancy related conditions, third trimester (principal); Z3A.38 38 weeks gestation of pregnancy; O99.613 Diseases of the digestive system complicating pregnancy, third trimester; K21.9 Gastro-esophageal reflux disease without esophagitis; O99.213 Obesity complicating pregnancy, third trimester; E66.9 Obesity, unspecified; R03.0 Elevated blood-pressure reading, without diagnosis of hypertension
CPT/HCPCS: 59025

== ENCOUNTER 2021-10-05 17:45 | Outpatient (CLI) | payer OTHER, SELFPAY ==
[2021-10-05 17:59] VITALS: BMI 35.2
[2021-10-05 18:01] VITALS: BP 139/82; PULSE 79; TEMP 36.8; O2SAT 98
--- NOTE | 2021-10-05 19:28 | OB.TRI.NOTE ---
HPI - General HPI Narrative MADDISON ADAIR, is a 26 F who presents at 38 5/7wga for scheduled NST Maternal Data Information NAMITA Calculator Estimated Delivery Date Method Current WG Current Estimate 10/14/21 Manual 38w 5d PFSH [facility] Medical History (Updated 10/05/21 @ 19:[address] Ashly Pickard MD) ASD (atrial septal defect) Cardiology follow-up encounter Coarctation of aorta Gastric reflux High cholesterol History of echocardiogram History of edema History of stress test Non-smoker Obesity Home Medications vitamin no.102-iron 90 mg-folate 1 mg-dha 200 mg capsule 1 cap PO DAILY 02/06/20 [History Last Taken 10/04/21 21:00] aspirin 81 mg tablet,delayed release 81 mg PO DAILY 03/19/21 [History Last Taken 10/04/21 21:00] calcium 500 mg PO DAILY 08/24/21 [History Last Taken 10/04/21 21:00] famotidine [Pepcid] 10 mg PO DAILY 08/24/21 [History Last Taken 10/04/21 21:00] Allergy/AdvReac Type Severity Reaction Status Date / Time latex AdvReac Itching Verified 10/05/21 18:07 Family History Mother Hypertension Surgical History (Updated 09/08/21 @ 13:28 by Kenya Spain) H/O atrial septal defect repair (2002) History of cardiac catheterization History of wisdom tooth extraction Social History (Updated 08/29/21 @ 08:[address] Ashly Pickard MD) Smoking Status: Never smoker alcohol intake: never details: not during History 1 Elective abortions Hx Para Spontaneous abortions Hx # Term Pregnancies Ectopic pregnancies Hx # Pregnancies Multiple births # of living children NST FHR Rate Baby A Baseline: 125 Variability:: Moderate Accelerations:: 15 x 15 Decelerations:: None NST Reactive:: Yes FHR Category:: Category I Uterine Activity:: 0/10 Assessment & Plan (1) 38 weeks gestation of : PLAN: REactive NST d/c (2) : QUALIFIERS: Weeks of gestation: 35 weeks Qualified Code(s): Z3A.35 - 35 weeks gestation of
== END 2021-10-05 18:30 | disposition home or self-care (01) ==
LOC: WPOUT 17:57 → WP 17:58
PROVIDERS: Visit Provider Obstetrics & Gynecology
DX: O99.613 Diseases of the digestive system complicating pregnancy, third trimester (principal); K21.9 Gastro-esophageal reflux disease without esophagitis; Z3A.35 35 weeks gestation of pregnancy; O99.213 Obesity complicating pregnancy, third trimester; E66.9 Obesity, unspecified; Z79.82 Long term (current) use of aspirin
CPT/HCPCS: 59025

== ENCOUNTER 2021-10-06 02:30 | Inpatient (IN) | payer OTHER, SELFPAY ==
[2021-10-06] VITALS (85 sets, daily range): BP systolic 109–152; BP diastolic 61–89; PULSE 57–91; RESP 14–18; TEMP 35.8–36.9; O2SAT 86–100; BMI 35.4
[2021-10-06] MEDS: 0.9% Saline Lock 10 ML Syringe IV (02:30)
[2021-10-06 02:41] LABS: Hematocrit 35.3 % (37-47); Hemoglobin 12.1 g/dL (12.0-15.0); Mean Corp Hgb Conc 34.3 g/dL (32-36); Mean Corpuscular Hgb 28.9 pg (27.0-32.0); Mean Corpuscular Volume 84.4 fL (81-99); Mean Platelet Vol. 10.1 fl (6.2-12.0); Platelet Count 247 K/mm3 (150-450); RBC Distribution Width CV 12.9 % (11.6-14.6); RBC Distribution Width SD 38.9 fl (35.1-43.9); Red Blood Count 4.18 M/mm3 (4.2-5.4)
[2021-10-06 02:57] LABS: Creatinine, Serum 0.54 mg/dL (0.55-1.02); EST Glomerular Filtration Rate 146 mL/min (>60); Est Glom Filt Rate - Afr Amer 177 mL/min (>60); Uric Acid 5.1 mg/dL (2.6-6.0)
[2021-10-06 02:59] LABS: ALB/GLOB Ratio 0.6 RATIO (0.9-2.4); AST(SGOT) 19 U/L (15-37); Alanine Aminotransfer ALT/SGPT 21 U/L (13-56); Albumin, Serum 2.6 g/dL (3.2-5.0); Alkaline Phosphatase 142 U/L (45-117); Anion Gap 8 (5-15); BUN 10 mg/dL (7-18); BUN/Creat Ratio 17.6 RATIO (10-20); Calcium,Total 8.9 mg/dL (8.5-10.1); Chloride 107 mmol/L (98-107); Creatinine, Serum 0.57 mg/dL (0.55-1.02); EST Glomerular Filtration Rate 138 mL/min (>60); Est Glom Filt Rate - Afr Amer 166 mL/min (>60); Glucose 117 mg/dL (74-106); LDH 183 U/L (84-246); Potassium 3.6 mmol/L (3.5-5.1); Protein, Total 6.6 g/dL (6.4-8.2); Sodium Level 136 mmol/L (136-145)
--- NOTE | 2021-10-06 03:02 | HP.PCM.OB_ITS ---
HPI - General General Date of Admission: 10/06/21 HPI Narrative MADDISON ADAIR, is a 26 F G1 who presents at 38 6/7 weeks gestation by LMP c/w first trimester US with c/o headache not alleviated with Tylenol. Serial BPs at work were elevated. Denies nausea, vomiting, chest pain, shortness of breath, vision changes, abdominal pain, vaginal bleeding, leaking of fluid. Reports good movement. Maternal Data Information NAMITA Calculator Estimated Delivery Date Method Current WG Current Estimate 10/14/21 Manual 38w 6d PFSH [facility] Medical History (Updated 10/06/21 @ 03:[address] Ashly Pickard MD) ASD (atrial septal defect) Cardiology follow-up encounter Coarctation of aorta Gastric reflux High cholesterol History of echocardiogram History of edema History of stress test Non-smoker Obesity Home Medications vitamin no.102-iron 90 mg-folate 1 mg-dha 200 mg capsule 1 cap PO DAILY 02/06/20 [History Last Taken 10/04/21 21:00] aspirin 81 mg tablet,delayed release 81 mg PO DAILY 03/19/21 [History Last Taken 10/04/21 21:00] calcium 500 mg PO DAILY 08/24/21 [History Last Taken 10/04/21 21:00] famotidine [Pepcid] 10 mg PO DAILY 08/24/21 [History Last Taken 10/04/21 21:00] Allergy/AdvReac Type Severity Reaction Status Date / Time latex AdvReac Itching Verified 10/05/21 18:07 sulfamethoxazole AdvReac Itching Verified 10/06/21 02:44 [From Febra] trimethoprim [From Febra] AdvReac Itching Verified 10/06/21 02:44 Family History Mother Hypertension Surgical History H/O atrial septal defect repair (2002) History of cardiac catheterization History of wisdom tooth extraction Social History Smoking Status: Never smoker alcohol intake: never details: not during History 1 Elective abortions Hx Para Spontaneous abortions Hx # Term Pregnancies Ectopic pregnancies Hx # Pregnancies Multiple births # of living children NST FHR Rate Baby A Baseline: 135 Variability:: Moderate Accelerations:: 15 x 15 Decelerations:: None NST Reactive:: Yes FHR Category:: Category I Uterine Activity:: 0/10 Vital Signs Vital Signs Vital Signs: 10/06/21 02:23 10/06/21 02:58 10/06/21 02:59 Temperature 96.5 F L Temperature Source Temporal Pulse Rate 81 75 Blood Pressure 141/80 H 150/89 H BP Systolic 141 150 BP Diastolic 80 89 Pulse Ox 98 100 Physical Exam Const alert, oriented x3 and no apparent distress HEENT normocephalic Resp normal respiratory effort, normal air movement and clear to auscultation bilaterally Cardio regular rate and regular rhythm Cardio Narrative: holosystolic murmur at LUSB GI normal to inspection, nondistended, normoactive bowel sounds, soft to palpation, non-tender and non-distended Inspection: gravid Narrative: SVE 07/11/-3, moderate, midposition Extremity no calf tenderness Extremity Narrative: 1+ b/l LE edema Labs Labs Labs: Blood Type A POSITIVE Hct 35.3 % (37-47) L Hgb 12.1 g/dL (12.0-15.0) Obstetrics US Syphilis Total Ab Non-reactive Rubella IgG Antibody Reactive (Nonreactive) Hep Bs Antigen Non-Reactive (Nonreactive) Chlamydia DNA (HEATHER) Negative (Negative) Neisseria gonorrhoeae DNA (HEATHER) Negative (Negative) HIV 1&2 Antibody Non-Reactive (Nonreactive) Glucose 1 Hr 50 gm 94 mg/dL (70-140) Assessment & Plan (1) 38 weeks gestation of : (2) Preeclampsia: QUALIFIERS: Trimester: third trimester Qualified Code(s): O14.93 - Unspecified pre-eclampsia, third trimester COMMENT: with severe features PLAN: Magnesium seizure prophylaxis Plan cytotec for IOL (3) ASD (atrial septal defect): COMMENT: ASD repair 2002 (4) Coarctation of aorta: COMMENT: no valvular disease PLAN: Reviewed history with MFM, ECHO with no worsening of mild coarct in third trimester and no valvular disease Fluid management to avoid dehydration to prevent dysrrhymthia, syncope - no restriction No indication for endocarditis prophylaxis or anti-hypertensive at this time Cardiology consultation
[2021-10-06] MEDS: Magnesium Sulfate 4gm/100mL 4 GM/100 ML IV.SOLN. IV (03:18)
[2021-10-06] MEDS: Lactated Ringers 1,000 ML 50 ML IV (03:19)
[2021-10-06] MEDS: Metoclopramide 10 MG/2 ML Vial 5 MG IV (03:20)
[2021-10-06 03:22] LABS: Creatinine, Urine (random) < 13.00 mg/dL (NO RANGE EST.); Protein, Urine (Random) 15.1 mg/dL (<11.9)
[2021-10-06] MEDS: Magnesium Sulfate 4gm/100mL 2 GM/50 ML IV.SOLN. IV (03:38)
[2021-10-06] MEDS: Magnesium Sulfate 20 GM/500 ML BAG IV ×3 (03:51→22:30)
[2021-10-06] MEDS: miSOPROStol 25 MCG TABLET PO (04:07)
[2021-10-06] MEDS: Acetaminophen 500 MG Tablet PO ×2 (05:23→11:34)
[2021-10-06] MEDS: miSOPROStol 50 MCG TABLET PO (08:55)
--- NOTE | 2021-10-06 09:18 | PCM.CONS.C ---
Documented by User: Nallely DAVIS, RYAN 10/06/21 09:48 Assessment & Plan Assessment/Plan (1) Elevated blood pressure reading without diagnosis of hypertension: (2) ASD (atrial septal defect): (3) Coarctation of aorta: PLAN: currently pt is stable, BP currently okay recommend close monitoring of BP readings HPI Consult Data Date of Consult: 10/06/21 HPI Narrative HPI Narrative: MADDISON ADAIR, is a 26 F that we were asked to consult on for monitoring of her Bp during her delivery with her hx of ASD repair and mild coarctation of her aorta, this was at the [facility]. Pt notes that over the last several weeks her BP has been creeping up. Last night she developed a CONTE and her BP was noted to be 150s/90. She was admitted for induction. Pt has not had any cardiac symptoms during this . She notes that her Bp was okay until a few weeks ago. [facility] Medical History ASD (atrial septal defect) Cardiology follow-up encounter Coarctation of aorta Gastric reflux High cholesterol History of echocardiogram History of edema History of stress test Non-smoker Obesity Home Medications vitamin no.102-iron 90 mg-folate 1 mg-dha 200 mg capsule 1 cap PO DAILY 02/06/20 [History Last Taken 10/04/21 21:00] aspirin 81 mg tablet,delayed release 81 mg PO DAILY 03/19/21 [History Last Taken 10/04/21 21:00] calcium 500 mg PO DAILY 08/24/21 [History Last Taken 10/04/21 21:00] famotidine [Pepcid] 10 mg PO DAILY 08/24/21 [History Last Taken 10/04/21 21:00] Allergy/AdvReac Type Severity Reaction Status Date / Time latex AdvReac Itching Verified 10/05/21 18:07 sulfamethoxazole AdvReac Itching Verified 10/06/21 02:44 [From Febra] trimethoprim [From ] AdvReac Itching Verified 10/06/21 02:44 Family History Mother Hypertension Surgical History H/O atrial septal defect repair (2002) History of cardiac catheterization History of wisdom tooth extraction Social History Smoking Status: Never smoker alcohol intake: never details: not during ROS Constitutional Constitutional: Reports as per HPI and headache(s) Eyes Eyes: Reports as per HPI Cardiovascular Cardiovascular: Reports as per HPI Respiratory/Chest Respiratory/Chest: Reports as per HPI Genitourinary Genitourinary: Reports as per HPI Neurologic Neurologic: Reports as per HPI Physical Exam Const alert, oriented x3, no apparent distress and healthy appearing HEENT normocephalic, head/scalp atraumatic, hearing grossly normal bilaterally, external ears normal, external nose normal and moist oral mucous membranes Eyes PERRL, EOMs intact bilaterally, conjunctivae normal and no scleral icterus Neck no lymphadenopathy, supple and no JVD Resp normal respiratory effort and clear to auscultation bilaterally Cardio regular rate, regular rhythm, S1 normal heart sound, S2 normal heart sound, no rub, no gallops, no clicks, no JVD and peripheral pulses 2+ throughout Heart Sounds: murmur systolic I/ soft GI Inspection: Extremity normal to inspection, normal capillary refill, no clubbing, cyanosis or edema and no pedal edema Neuro oriented x3, CN's II-XII intact bilaterally, moves all extremities and no focal motor deficits Psych cooperative and affect normal Risk Stratification Risk Stratification Applicable: No Objective Data Vital Signs: Vital Signs Temp Pulse Resp BP Pulse Ox 96.9 F L 77 18 128/79 H 98 10/06/21 09:08 10/06/21 09:08 10/06/21 09:08 10/06/21 09:08 10/06/21 09:08 Oxygen Delivery Method Room Air Weight: 206 lb 12.8 oz Body Mass Index (BMI) 35.4 Intake & Output: Intake and Output for Last 24 Hours 10/04/21 10/05/21 10/06/21 23:59 23:59 23:59 Intake Total 620.83 / 620.83 Output Total 1800 / 1800 Balance -1179.17 / -1179.17 Lab / Micro Data Result Diagrams: 10/06/21 02:30 10/06/21 02:30 Labs: Laboratory Results - last 24 hr 10/06/21 02:30: WBC 11.0, RBC 4.18 L, Hgb 12.1, Hct 35.3 L, MCV 84.4, MCH 28.9, MCHC 34.3, RDW Std Deviation 38.9, RDW Coeff of Odell 12.9, Plt Count 247, MPV 10.1 10/06/21 02:30: U Random Total Protein 15.1 H, Urine Creatinine < 13.00, Protein/Creatinin Ratio TNP 10/06/21 02:30: Creatinine 0.54 L, Est GFR (MDRD) Af Amer 177, Est GFR (MDRD) Non-Af 146, Uric Acid 5.1 10/06/21 02:30: Sodium 136, Potassium 3.6, Chloride 107, Carbon Dioxide 21.0, Anion Gap 8, BUN 10, Creatinine 0.57, Est GFR (MDRD) Af Amer 166, Est GFR (MDRD) Non-Af 138, BUN/Creatinine Ratio 17.6, Glucose 117 H, Calcium 8.9, Total Bilirubin 0.20, AST 19, ALT 21, Alkaline Phosphatase 142 H, Lactate Dehydrogenase 183, Total Protein 6.6, Albumin 2.6 L, Globulin 4.0, Albumin/Globulin Ratio 0.6 L 10/06/21 02:30: Blood Type A POSITIVE, Antibody Screen NEGATIVE Micro: Microbiology 10/06/21 04:45 Nasal Secretion SARS-CoV-2 Antigen (Rapid) - Final Cardiology Labs/Tests 10/06/21 02:30: WBC 11.0, RBC 4.18 L, Hgb 12.1, Hct 35.3 L, MCV 84.4, MCH 28.9, MCHC 34.3, Plt Count 247, MPV 10.1 10/06/21 02:30: Creatinine 0.54 L, Est GFR (MDRD) Af Amer 177, Est GFR (MDRD) Non-Af 146, Uric Acid 5.1 10/06/21 02:30: Sodium 136, Potassium 3.6, Chloride 107, Carbon Dioxide 21.0, Anion Gap 8, BUN 10, Creatinine 0.57, Est GFR (MDRD) Af Amer 166, Est GFR (MDRD) Non-Af 138, BUN/Creatinine Ratio 17.6, Glucose 117 H, Calcium 8.9, Total Bilirubin 0.20 ECHO: 08/2021: Normal LV size. Left ventricular systolic function is normal. The estimated ejection fraction is 60 %. Mild coarctation noted post subclavian. Structurally normal valves. Documented by User: Dr. Tanvir James MD 10/06/21 19:18 Assessment & Plan Addt'l Comments Addendum: The patient was independently evaluated and examined. In brief, this is a 26-year-old white female with a past cardiovascular history which has previously included an atrial septal defect repair-remote and a diagnosis of coarctation of the aorta-mild who has previously been evaluated in the outpatient setting by Dr. Cain who presents now for concerns of preeclampsia and the need for induction with a request by maternal- medicine for cardiology consultation. The patient states that from a cardiac standpoint she believes she is doing well she has had no ongoing concerning chest discomfort, difficulty breathing, orthopnea, PND, or significant lower extremity peripheral pitting edema. There is been no concerns of palpitations or near syncope or syncope. She underwent a transthoracic echocardiogram recently on 08-18-2021. The report was evaluated by Dr. Cain. The results are noted below. Interpretation Summary Normal LV size. Left ventricular systolic function is normal. The estimated ejection fraction is 60 %. Mild coarctation noted post subclavian. Structurally normal valves. She has not required any additional cardiovascular diagnostic studies. Thus far she seems to be stable while she undergoes her current medical therapy/care. On examination at this time her vital signs are noted to have a pulse of approximately 70 bpm and a blood pressure at approximately 110/60 mmHg. Her lungs are clear to auscultation percussion bilaterally. Her cardiovascular exam demonstrates a regular rhythm with a normal S1 and S2 without obvious rubs or gallops. She does have a soft grade 1/6 to 2/6 systolic murmur at the lower sternal border rating toward the LV outflow tract area. (She states she is a aware of a history of a cardiac murmur). Her lower extremities demonstrate no obvious significant bilateral lower extremity peripheral pitting edema. At the present time she carries the aforementioned diagnoses. She has undergone noninvasive valuation recently. She does not appear to have any acute findings on history or examination at this time. At the present time there does not appear to be the need for additional cardiovascular diagnostic studies/intervention. She will continue under the care of her [employer] team and maternal- medicine team with adjustment of medicines as deemed appropriate from their standpoint for her concerns of preeclampsia during her labor and delivery process. Thank you for allowing me to participate in the care of your patient. Please don't hesitate to call if any issues arise. The patient's case has been previously discussed and reviewed with RYAN Betancur as well as Dr. Marilyn Pickard. HPI Consult Data Date of Consult: 10/06/21 [facility] Medical History ASD (atrial septal defect) Cardiology follow-up encounter Coarctation of aorta Gastric reflux High cholesterol History of echocardiogram History of edema History of stress test Non-smoker Obesity Home Medications vitamin no.102-iron 90 mg-folate 1 mg-dha 200 mg capsule 1 cap PO DAILY 02/06/20 [History Last Taken 10/04/21 21:00] aspirin 81 mg tablet,delayed release 81 mg PO DAILY 03/19/21 [History Last Taken 10/04/21 21:00] calcium 500 mg PO DAILY 08/24/21 [History Last Taken 10/04/21 21:00] famotidine [Pepcid] 10 mg PO DAILY 08/24/21 [History Last Taken 10/04/21 21:00] Allergy/AdvReac Type Severity Reaction Status Date / Time latex AdvReac Itching Verified 10/05/21 18:07 sulfamethoxazole AdvReac Itching Verified 10/06/21 02:44 [From Septra] trimethoprim [From Febra] AdvReac Itching Verified 10/06/21 02:44 Family History Mother Hypertension Surgical History H/O atrial septal defect repair (2002) History of cardiac catheterization History of wisdom tooth extraction Social History Smoking Status: Never smoker alcohol intake: never details: not during Lab / Micro Data Result Diagrams: 10/06/21 02:30 10/06/21 02:30
--- NOTE | 2021-10-06 13:38 | NURSING ---
new bag initiated
[2021-10-06] MEDS: miSOPROStol 50 MCG TABLET VAGINAL ×2 (16:03→22:04)
--- NOTE | 2021-10-06 20:32 | PN.OBGYN_ITS ---
Subjective Subjective Patient resting comfortably in bed with occasional contraction with Cytotec 50 mg vaginally. Still unable to rupture membranes. We will continue 2 more doses of Cytotec overnight. Reactive heart tones. Blood pressures okay with no need for pharmacologic intervention. Continue magnesium sulfate 2 g/h. An ticipate rupture of membranes in a.m. and progression of labor at that time. Objective Data Objective Data Vital Signs: Vital Signs Temp Pulse Resp BP Pulse Ox 97.5 F L 68 16 135/75 H 97 10/06/21 20:21 10/06/21 20:21 10/06/21 19:20 10/06/21 20:21 10/06/21 19:22 Oxygen Delivery Method Room Air Weight: 206 lb 12.8 oz Body Mass Index (BMI) 35.4 Intake & Output: Intake and Output for Last 24 Hours 10/04/21 10/05/21 10/06/21 23:59 23:59 23:59 Intake Total 2070.83 / 2070.83 Output Total 4100 / 4100 Balance -2028.17 / - Lab / Micro Data Result Diagrams: 10/06/21 02:30 10/06/21 02:30 Labs: Laboratory Results - last 24 hr 10/06/21 02:30: WBC 11.0, RBC 4.18 L, Hgb 12.1, Hct 35.3 L, MCV 84.4, MCH 28.9, MCHC 34.3, RDW Std Deviation 38.9, RDW Coeff of Odell 12.9, Plt Count 247, MPV 10.1 10/06/21 02:30: U Random Total Protein 15.1 H, Urine Creatinine < 13.00, Protein/Creatinin Ratio TNP 10/06/21 02:30: Creatinine 0.54 L, Est GFR (MDRD) Af Amer 177, Est GFR (MDRD) Non-Af 146, Uric Acid 5.1 10/06/21 02:30: Sodium 136, Potassium 3.6, Chloride 107, Carbon Dioxide 21.0, Anion Gap 8, BUN 10, Creatinine 0.57, Est GFR (MDRD) Af Amer 166, Est GFR (MDRD) Non-Af 138, BUN/Creatinine Ratio 17.6, Glucose 117 H, Calcium 8.9, Total Bilirubin 0.20, AST 19, ALT 21, Alkaline Phosphatase 142 H, Lactate D ehydrogenase 183, Total Protein 6.6, Albumin 2.6 L, Globulin 4.0, Albumin/Globulin Ratio 0.6 L 10/06/21 02:30: Blood Type A POSITIVE, Antibody Screen NEGATIVE Micro: Microbiology 10/06/21 04:45 Nasal Secretion SARS-CoV-2 Antigen (Rapid) - Final
[2021-10-07] VITALS (92 sets, daily range): BP systolic 99–152; BP diastolic 50–93; PULSE 59–93; RESP 16–18; TEMP 35.9–36.9; O2SAT 97–100
[2021-10-07] MEDS: Lactated Ringers 500 ML 999 ML IV ×4 (04:05→20:16)
[2021-10-07] MEDS: miSOPROStol 50 MCG TABLET VAGINAL (04:47)
[2021-10-07] MEDS: Lactated Ringers 1,000 ML 25 ML IV (04:48)
[2021-10-07] MEDS: 0.9% Normal Saline Single 100 ML IV.SOLN. INTRA-UTER (07:21)
--- NOTE | 2021-10-07 07:40 | PCM.PN.OB ---
Subjective Subjective No complaints. Headache resolved. Denies vision changes, shortness of breath or abdominal pain. Has good movement. Objective Data Objective Data Vital Signs: Vital Signs Temp Pulse Resp BP Pulse Ox 97.3 F L 71 18 147/85 H 98 10/07/21 07:30 10/07/21 07:35 10/07/21 07:30 10/07/21 07:35 10/07/21 07:34 Oxygen Delivery Method Room Air Weight: 93.803 kg Body Mass Index (BMI) 35.4 Intake & Output: Intake and Output for Last 24 Hours 10/05/21 10/06/21 10/07/21 23:59 23:59 23:59 Intake Total 3065.83 / 3065.83 2117.25 / 2117.25 Output Total 5300 / 5300 750 / 750 Balance -2234.17 / -2234.17 1367.25 / 1367.25 Lab / Micro Data Result Diagrams: 10/06/21 02:30 10/06/21 02:30 Micro: Microbiology 10/06/21 04:45 Nasal Secretion SARS-CoV-2 Antigen (Rapid) - Final Physical Exam Narrative GEN - NAD, AAO x 3 SVE - 2/50/-3, moderate and midposition TOCO 5/10 FHR 125, moderate variability, + accelerations, no decelerations Assessment & Plan (1) 39 weeks gestation of : PLAN: Bauman bulb placed Will assess for pitocin after am misoprostol effect complete (2) Preeclampsia: QUALIFIERS: Trimester: third trimester Qualified Code(s): O14.93 - Unspecified pre-eclampsia, third trimester COMMENT: with severe features PLAN: No si/sx worsening Tolerates magnesium (3) Elevated blood pressure reading without diagnosis of hypertension: (4) ASD (atrial septal defect): COMMENT: ASD repair 2002 (5) Coarctation of aorta: COMMENT: no valvular disease PLAN: Cardiology aware, pt present for IOL
[2021-10-07] MEDS: Magnesium Sulfate 20 GM/500 ML BAG IV ×2 (08:27→17:24)
--- NOTE | 2021-10-07 08:41 | PCM.PN.OB ---
Subjective Subjective No complaints. Reports gallardo bulb fell out. Objective Data Objective Data Vital Signs: Vital Signs Temp Pulse Resp BP Pulse Ox 97.3 F L 74 18 130/77 H 98 10/07/21 07:30 10/07/21 08:30 10/07/21 07:30 10/07/21 08:30 10/07/21 07:34 Oxygen Delivery Method Room Air Weight: 93.803 kg Body Mass Index (BMI) 35.4 Intake & Output: Intake and Output for Last 24 Hours 10/05/21 10/06/21 10/07/21 23:59 23:59 23:59 Intake Total 3065.83 / 3065.83 2117.25 / 2117.25 Output Total 5300 / 5300 750 / 750 Balance -2234.17 / -2234.17 1367.25 / 1367.25 Lab / Micro Data Result Diagrams: 10/06/21 02:30 10/06/21 02:30 Micro: Microbiology 10/06/21 04:45 Nasal Secretion SARS-CoV-2 Antigen (Rapid) - Final Physical Exam Narrative GEN - NAD, AAO x 3 FHR 125, moderate variability, + 10 x 10 accelerations, no decelerations TOCO irritability, / SVE 4.5/50/-3, soft and midposition Assessment & Plan (1) 39 weeks gestation of : PLAN: Start pitocin 6 hours post last cytotec dosing (2) Preeclampsia: QUALIFIERS: Trimester: third trimester Qualified Code(s): O14.93 - Unspecified pre-eclampsia, third trimester COMMENT: with severe features (3) ASD (atrial septal defect): COMMENT: ASD repair 2002 (4) Coarctation of aorta: COMMENT: no valvular disease
[2021-10-07] MEDS: Oxytocin 30 units/NS 500 ml 30 UNITS/500 ML IV.SOLN IV (11:28)
[2021-10-07] MEDS: fentaNYL-bupivacaine (epidural) 100 ML BAG EPIDURAL (15:18)
[2021-10-07] MEDS: Acetaminophen 500 MG Tablet PO ×2 (15:39→22:00)
[2021-10-07] MEDS: Dextrose 5%-Lactated Ringers 1,000 ML 100 ML IV (17:25)
--- NOTE | 2021-10-07 19:59 | PCM.PN.OB ---
Subjective Subjective No complaints. Denies headache, visual changes, chest pain, shortness of breath, nausea vomiting, right upper quadrant pain. Objective Data Objective Data Vital Signs: Vital Signs Temp Pulse Resp BP Pulse Ox 97.6 F L 76 16 139/75 H 99 10/07/21 19:19 10/07/21 19:21 10/07/21 19:19 10/07/21 19:19 10/07/21 19:21 Oxygen Delivery Method Room Air Weight: 206 lb 12.8 oz Body Mass Index (BMI) 35.4 Intake & Output: Intake and Output for Last 24 Hours 10/05/21 10/06/21 10/07/21 23:59 23:59 23:59 Intake Total 3065.83 / 3065.83 4264.75 / 4264.75 Output Total 5300 / 5300 2049 / 2049 Balance -2234.17 / -2234.17 2214.75 / 2214.75 Lab / Micro Data Result Diagrams: 10/06/21 02:30 10/06/21 02:30 Micro: Microbiology 10/06/21 04:45 Nasal Secretion SARS-CoV-2 Antigen (Rapid) - Final Physical Exam Const alert, oriented x3, no apparent distress, average body habitus, healthy appearing and well nourished HEENT normocephalic and moist oral mucous membranes Head and Scalp: atraumatic Face and Sinus: normal facial exam Neck full ROM Resp normal respiratory effort, no retractions and no use of accessory muscles Extremity normal to inspection, full ROM and no clubbing, cyanosis or edema Psych mental status grossly normal, affect normal, speech normal and activity/motor behavior normal Assessment & Plan (1) : PLAN: Patient seen and examined. Now resolved headache. Continue magnesium. Nonsevere range blood pressures. SROM . Continue Pitocin, will titrate appropriately
[2021-10-07] MEDS: DiphenhydrAMINE 25 MG Capsule PO (20:55)
[2021-10-07] MEDS: Ondansetron 4 MG/2 ML Vial IV (21:55)
[2021-10-08] VITALS (57 sets, daily range): BP systolic 101–152; BP diastolic 52–89; PULSE 66–97; RESP 14–18; TEMP 36.1–37.4; O2SAT 90–100
[2021-10-08] MEDS: Lactated Ringers 500 ML 999 ML IV (00:06)
[2021-10-08] MEDS: fentaNYL-bupivacaine (epidural) 100 ML BAG EPIDURAL (00:14)
[2021-10-08] MEDS: Magnesium Sulfate 20 GM/500 ML BAG IV ×2 (03:11→12:54)
[2021-10-08] MEDS: Oxytocin 30 units/NS 500 ml 30 UNITS/500 ML IV.SOLN 334 UNITS IV (04:45)
[2021-10-08] MEDS: Carboprost Tromethamine 250 MCG/ML Ampul IM (04:57)
[2021-10-08] MEDS: miSOPROStol 200 MCG Tablet 1000 MCG RC (05:00)
--- NOTE | 2021-10-08 05:10 | EX.PCM.OBRPT ---
Maternal Data Information NAMITA Calculator Estimated Delivery Date Method Current WG Current Estimate 10/14/21 Manual 39w 1d Vaginal Delivery Findings Description of Procedure: Normal spontaneous vaginal delivery of a viable female , cephalic ISHA. Head and shoulders delivered with ease. Cord cut and clamped. Baby handed off to patient. Placenta delivered via cord traction and fundal massage. Second-degree midline perineal laceration noted and repaired in typical fashion. EBL 4 to 50 cc Apgars 7/8 Hemabate IM and Cytotec AK given prophylactically
[2021-10-08] MEDS: Lactated Ringers 1,000 ML 100 ML IV (06:21)
[2021-10-08 08:19] LABS: Magnesium 5.2 mg/dL (1.6-2.6)
[2021-10-08] MEDS: Ibuprofen 600 MG Tablet PO ×3 (09:07→22:46)
[2021-10-08] MEDS: Acetaminophen 500 MG Tablet 1000 MG PO ×2 (10:11→17:46)
[2021-10-08] MEDS: 0.9% Saline Lock 10 ML Syringe IV (16:31)
[2021-10-09] VITALS (7 sets, daily range): BP systolic 121–150; BP diastolic 58–82; PULSE 71–85; RESP 16; TEMP 35.6–36.9; O2SAT 96–98
[2021-10-09] MEDS: Acetaminophen 500 MG Tablet 1000 MG PO ×2 (00:55→21:46)
[2021-10-09] MEDS: Labetalol 100 MG Tablet PO ×3 (00:55→21:46)
--- NOTE | 2021-10-09 03:51 | NURSING ---
0230- This RN received report from Dulce Soria RN and will be resuming care at this time.
--- NOTE | 2021-10-09 07:45 | PN.OBGYN_ITS ---
Subjective Subjective No complaints. Denies headache, fever chills, chest pain, shortness breath, nausea vomit, right upper quadrant pain. Objective Data Objective Data Vital Signs: Vital Signs Temp Pulse Resp BP Pulse Ox 98.1 F 71 16 150/80 H 97 10/09/21 03:00 10/09/21 03:00 10/09/21 03:00 10/09/21 03:00 10/09/21 03:00 Oxygen Delivery Method Room Air Weight: 206 lb 12.8 oz Body Mass Index (BMI) 35.4 Intake & Output: Intake and Output for Last 24 Hours 10/07/21 10/08/21 10/09/21 23:59 23:59 23:59 Intake Total 5105.97 / 5105.97 4838.27 / 4838.27 Output Total 3300 / 3300 3150 / 3150 Balance 1805.97 / 1805.97 1688.27 / 1688.27 Lab / Micro Data Result Diagrams: 10/06/21 02:30 10/06/21 02:30 Labs: Laboratory Results - last 24 hr 10/08/21 07:05: Magnesium 5.2 H* Micro: Microbiology 10/06/21 04:45 Nasal Secretion SARS-CoV-2 Antigen (Rapid) - Final Physical Exam Const alert, oriented x3, no apparent distress, average body habitus, healthy appearing and well nourished HEENT normocephalic and moist oral mucous membranes Head and Scalp: atraumatic Face and Sinus: normal facial exam Neck full ROM Resp normal respiratory effort, no retractions and no use of accessory muscles GI GI Narrative: Soft, nontender, uterus firm and below umbilicus Extremity normal to inspection, full ROM and no clubbing, cyanosis or edema Psych mental status grossly normal, affect normal, speech normal and activity/motor behavior normal Assessment & Plan (1) : PLAN: day 1. Breast-feeding. Preeclampsia with severe features based on headache. Overnight started on labetalol 100 mg twice daily for borderline pressures over 140s nonsevere range. We will continue to monitor . Status post magnesium. We will continue to monitor
[2021-10-09] MEDS: Ibuprofen 600 MG Tablet PO (08:00)
[2021-10-09] MEDS: Senna/Docusate Sodium 1 Tablet PO (10:39)
[2021-10-10 01:10] VITALS: BP 136/78; PULSE 72; RESP 16; TEMP 36.6; O2SAT 95
[2021-10-10 08:00] VITALS: BP 132/74; PULSE 74; RESP 16; TEMP 36.7
[2021-10-10] MEDS: Ibuprofen 600 MG Tablet PO (08:07)
[2021-10-10] MEDS: Senna/Docusate Sodium 1 Tablet PO (08:07)
--- NOTE | 2021-10-10 09:03 | PCM.DC.BLA ---
Discharge Summary Date of Admission: 10/06/21 Date of Discharge: 10/10/21 Summary: Patient arrived on 10/06/2021 for induction of labor with preeclampsia with severe features based on persistent headache. Cardiology was consulted for patient's history of ASD and coarctation of the aorta now with preeclampsia with severe features. Cardiology's recommendations followed. Magnesium was started. Induction of labor pursued with vaginal delivery on 10/08/2021. Magnesium was continued for 24 hours . Labetalol 100 mg twice daily p.o. was started . Patient remained asymptomatic with no headache. Patient discharged home on 10/10/2021 Meaningful Use Info Meaningful Use Diagnoses (Choose all that apply): None applicable Discharge Plan Admission Admit Date/Time: 10/06/21 02:30 Primary Reason for Your Visit: Induction of labor for preeclampsia with severe features Attending Provider: Turner Hoang Instructions Additional Instructions / Restrictions: Weightbearing as tolerated. No intercourse for 4 to 6 weeks. Regular diet. Okay to shower. No driving for 1 week. Call if headache, visual changes, chest pain, shortness of breath, nausea vomiting, right upper quadrant pain, increased vaginal bleeding. Follow-up 1 day blood pressure check Discharge Orders/Prescriptions Prescriptions: New labetalol 100 mg Tablet 100 mg PO BID Qty: 60 RF: 1 Continued PNV [id number] 90 mg iron- 1 mg-200 mg capsule 1 cap PO DAILY RF: 0 aspirin [Adult Low Dose Aspirin] 81 mg tablet,delayed release (DR/EC) 81 mg PO DAILY RF: 0 calcium 500 mg Tablet 500 mg PO DAILY RF: 0 famotidine [Pepcid] 20 mg Tablet 10 mg PO DAILY RF: 0 Disposition Disposition (needs filled in before D/C Order can be placed): Home, Self Care
--- NOTE | 2021-10-10 09:05 | PN.OBGYN_ITS ---
Subjective Subjective No overnight complaints. Denies headache, visual changes, chest pain, shortness of breath, nausea vomiting, right upper quadrant pain. Objective Data Objective Data Vital Signs: Vital Signs Temp Pulse Resp BP Pulse Ox 98.0 F 74 16 132/74 H 95 10/10/21 08:00 10/10/21 08:00 10/10/21 08:00 10/10/21 08:00 10/10/21 01:10 Oxygen Delivery Method Room Air Weight: 206 lb 12.8 oz Body Mass Index (BMI) 35.4 Intake & Output: Intake and Output for Last 24 Hours 10/08/21 10/09/21 10/10/21 23:59 23:59 23:59 Intake Total 4838.27 / 4838.27 Output Total 3150 / 3150 Balance 1688.27 / 1688.27 Lab / Micro Data Result Diagrams: 10/06/21 02:30 10/06/21 02:30 Micro: Microbiology 10/06/21 04:45 Nasal Secretion SARS-CoV-2 Antigen (Rapid) - Final Physical Exam Const alert, oriented x3, no apparent distress, average body habitus, healthy appearing and well nourished HEENT normocephalic and moist oral mucous membranes Head and Scalp: atraumatic Face and Sinus: normal facial exam Eyes PERRL Neck full ROM Resp normal respiratory effort, no retractions and no use of accessory muscles GI GI Narrative: Soft, nontender, uterus firm and below umbilicus Extremity normal to inspection, full ROM and no clubbing, cyanosis or edema Neuro deep tendon reflexes 2+ bilaterally Motor Exam: clonus absent Psych mental status grossly normal, affect normal, speech normal and activity/motor behavior normal Assessment & Plan (1) Vaginal delivery: PLAN: day 2. Breast-feeding. Preeclampsia with severe features based on headache, status post magnesium for 24 hours. Currently on labetalol 100 mg twice daily p.o. Babies blood sugar issues now resolved per portrait painter. Patient desires discharge home, discussed further observation. Patient states will take blood pressures at home and follow-up tomorrow for blood pressure check in office. Reasonable, will continue labetalol 100 mg twice daily p.o. okay to discharge home today if okay with portrait painter
[2021-10-10] MEDS: Labetalol 100 MG Tablet PO (10:30)
--- NOTE | 2021-10-16 10:13 | NURSING ---
Follow up phone call done, patient denies needs at this time reports everything is going well aside from , is working with Jennifer Torres with [facility] made a follow up appt during phone call.
== END 2021-10-10 10:38 | disposition home or self-care (01) | DRG 806 ==
LOC: WPOUT 02:30 → WP 02:30
PROVIDERS: Obstetrics & Gynecology; Admitting Provider Obstetrics & Gynecology; Visit Provider Obstetrics & Gynecology
DX: O14.14 Severe pre-eclampsia complicating childbirth (principal); Z37.0 Single live birth; Q25.1 Coarctation of aorta; K21.9 Gastro-esophageal reflux disease without esophagitis; O99.892 Other specified diseases and conditions complicating childbirth; O99.62 Diseases of the digestive system complicating childbirth; Z3A.39 39 weeks gestation of pregnancy; O99.214 Obesity complicating childbirth; E66.9 Obesity, unspecified; Z79.82 Long term (current) use of aspirin; Z87.74 Personal history of (corrected) congenital malformations of heart and circulatory system; O70.1 Second degree perineal laceration during delivery
CPT/HCPCS: 76815; 80053; 82565; 82570; 83615; 83735; 84156; 84550; 85027; 86850; 86900; 86901; 87426; 99218; J7120; A4216; G0378; J2405

== ENCOUNTER → 2021-10-14 | Outpatient (CLI) | payer OTHER, SELFPAY ==
[2021-10-14 13:17] LABS: Hematocrit 30.3 % (37-47); Hemoglobin 10.2 g/dL (12.0-15.0); Mean Corp Hgb Conc 33.7 g/dL (32-36); Mean Corpuscular Hgb 28.9 pg (27.0-32.0); Mean Corpuscular Volume 85.8 fL (81-99); Mean Platelet Vol. 9.3 fl (6.2-12.0); Platelet Count 355 K/mm3 (150-450); RBC Distribution Width CV 13.1 % (11.6-14.6); RBC Distribution Width SD 40.4 fl (35.1-43.9); Red Blood Count 3.53 M/mm3 (4.2-5.4)
[2021-10-14 13:24] LABS: ALB/GLOB Ratio 0.7 RATIO (0.9-2.4); AST(SGOT) 21 U/L (15-37); Alanine Aminotransfer ALT/SGPT 50 U/L (13-56); Albumin, Serum 2.8 g/dL (3.2-5.0); Alkaline Phosphatase 125 U/L (45-117); Anion Gap 7 (5-15); BUN 8 mg/dL (7-18); BUN/Creat Ratio 16.1 RATIO (10-20); Chloride 109 mmol/L (98-107); EST Glomerular Filtration Rate 161 mL/min (>60); Est Glom Filt Rate - Afr Amer 195 mL/min (>60); Globulin 4.3 g/dL (2.2-4.2); Glucose 76 mg/dL (74-106); LDH 278 U/L (84-246); Potassium 3.7 mmol/L (3.5-5.1); Protein, Total 7.1 g/dL (6.4-8.2); Sodium Level 139 mmol/L (136-145)
== END | disposition home or self-care (01) ==
PROVIDERS: PCP Family Medicine; Visit Provider Obstetrics & Gynecology
DX: O14.95 Unspecified pre-eclampsia, complicating the puerperium (principal)
CPT/HCPCS: 36415; 80053; 83615; 85027

== ENCOUNTER → 2022-11-22 | Outpatient (CLI) | payer OTHER, SELFPAY ==
[2022-11-22 11:38] LABS: Thyroid Stim Hormone (TSH) 1.54 uIU/mL (0.358-3.74)
== END | disposition home or self-care (01) ==
LOC: LAB 09:28
PROVIDERS: PCP Family Medicine; Referring Provider Family Medicine; Visit Provider Family Medicine
DX: R53.83 Other fatigue (principal)
CPT/HCPCS: 36415; 84443

== ENCOUNTER → 2023-02-23 | Outpatient (CLI) | payer OTHER, SELFPAY ==
[2023-02-23 12:04] LABS: Protein, Urine (Random) 17.8 mg/dL (<11.9); Protein:Creat Ratio 112 mg/g CRE (0-200)
[2023-02-26 10:07] LABS: Chlamydia By Nucleic Acid AMP Negative (Negative); Gonococcus By Nucleic Acid AMP Negative (Negative)
== END | disposition home or self-care (01) ==
LOC: LABSPEC 11:23
PROVIDERS: PCP Family Medicine; Referring Provider Obstetrics & Gynecology; Visit Provider Obstetrics & Gynecology
DX: Z34.90 Encounter for supervision of normal pregnancy, unspecified, unspecified trimester (principal); Z87.59 Personal history of other complications of pregnancy, childbirth and the puerperium
CPT/HCPCS: 82570; 84156; 87086; 87088; 87491; 87591

== ENCOUNTER → 2023-03-07 | Outpatient (CLI) | payer OTHER, SELFPAY ==
[2023-03-07 13:01] LABS: Absolute Lymphocyte Count 1.94 X10^3/uL (0.83-4.51); Absolute Neutrophil Count 6.8 X10^3/uL (2.0-7.7); Basophil# 0.01 X10^3/uL; Basophil% 0.1 % (0-1); Eosinophil# 0.05 X10^3/uL; Eosinophils% 0.5 % (0-5); Hemoglobin 12.1 g/dL (12.0-15.0); Lymphocyte # 1.94 X10^3/ul (0.83-4.51); Lymphocyte % 21.3 % (19-41); Mean Corp Hgb Conc 32.7 g/dL (32-36); Mean Corpuscular Hgb 27.6 pg (27.0-32.0); Mean Corpuscular Volume 84.3 fL (81-99); Mean Platelet Vol. 9.9 fl (6.2-12.0); Monocyte# 0.26 X10^3/uL; Monocyte% 2.9 % (0-10); NRBC Flagged by Analyzer 0 % (0-5); Neutrophil % 74.7 % (47-70); Platelet Count 313 K/mm3 (150-450); RBC Distribution Width SD 39.8 fl (35.1-43.9); Red Blood Count 4.39 M/mm3 (4.2-5.4); White Blood Count 9.1 K/mm3 (4.4-11.0)
[2023-03-07 13:34] LABS: AST(SGOT) 12 U/L (15-37); Alanine Aminotransfer ALT/SGPT 23 U/L (13-56); Albumin, Serum 3.5 g/dL (3.2-5.0); Alkaline Phosphatase 60 U/L (45-117); Anion Gap 7 (5-15); BUN 7 mg/dL (7-18); BUN/Creat Ratio 11.5 RATIO (10-20); Calcium,Total 8.6 mg/dL (8.5-10.1); Chloride 103 mmol/L (98-107); Creatinine, Serum 0.61 mg/dL (0.55-1.02); EST Glomerular Filtration Rate 126 mL/min (>60); Est Glom Filt Rate - Afr Amer 153 mL/min (>60); Globulin 3.5 g/dL (2.2-4.2); Glucose 130 mg/dL (74-106); Potassium 3.3 mmol/L (3.5-5.1); Sodium Level 133 mmol/L (136-145)
[2023-03-07 14:10] LABS: HIV - WCH Non-Reactive (Nonreactive); Hepatitis B Surface Antigen Non-Reactive (Nonreactive); Hepatitis C Antibody Non-Reactive (Nonreactive); Rubella IgG Reactive (Nonreactive); Syphilis Antibodies Non-reactive
== END | disposition home or self-care (01) ==
PROVIDERS: Obstetrics & Gynecology; PCP Family Medicine; Referring Provider Obstetrics & Gynecology; Visit Provider Obstetrics & Gynecology
DX: Z34.90 Encounter for supervision of normal pregnancy, unspecified, unspecified trimester (principal); Z87.59 Personal history of other complications of pregnancy, childbirth and the puerperium
CPT/HCPCS: 36415; 80053; 85025; 86703; 86762; 86780; 86803; 86850; 86900; 86901; 87340

== ENCOUNTER → 2023-06-19 | Outpatient (CLI) | payer OTHER, SELFPAY | END | disposition home or self-care (01) | PROVIDERS: PCP Family Medicine; Visit Provider Obstetrics & Gynecology | DX: O26.899 Other specified pregnancy related conditions, unspecified trimester (principal); O89.8 Other complications of anesthesia during the puerperium | CPT/HCPCS: 87070; 87205 ==

== ENCOUNTER → 2023-07-04 | Outpatient (CLI) | payer OTHER, SELFPAY ==
--- OUTSIDE RECORDS SUMMARY | 2023-07-04 07:13 | XMS RPT_ITS | CCD ---
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 Name Role Phone Maura Ro Unavailable Unavailable JUAN DAVID, JASON Attending Unavailable VENICE, GREGG Primary Care Unavailable DON VERNON Attending Unavailable VENICE, GREGG Primary Care Unavailable JUAN DAVID, JASON Admitting Unavailable JUAN DAVID, JASON Attending Unavailable GREGG NEGRO Primary Care Unavailable JUAN DAVID, JASON Attending Unavailable MYRIAM DUMONT Referring Unavailable JUAN DAVID, JASON Attending Unavailable Gregg Negro MD Unavailable Gregg Negro MD Primary Care Provider HANSA MARQUEZ Attending Unavailable NO PRIMARY MD CATARINO Primary Care Unavailable FERNIE HARLEY Referring Unavailabl e HANSA MARQUEZ Referring Unavailable JUAN JOSE NEGRO Attending Unavailable HANSA MARQUEZ Primary Care Unavailable Allergies Allergy Classification Reported Allergen(s) Allergy Type Date of Onset Reaction(s) Facility (2 sources) natural latex rubber; Translations: [LATEX] allergy to substance 04-06-20 16 rash [facility] Work Phone: (1 source) sulfamethoxazole / trimethoprim Drug Allergy 04-06-20 16 cramping [facility] Work Phone: (1 source) Latex Propensity to adverse reactions 06-14-19 23 Rash [facility] (1 source) Sulfamethoxazole Allergy to substance 03-19-20 21 Itching, Unknown [employer] Medications Current Medications Medication Drug Class(es) Dates Sig (Normalized) Sig (Original) alpha-tocopherol acetate 30 unt / ascorbic acid 100 mg / beta carotene 1000 unt / calcium carbonate 200 mg / calcium pantothenate 7 mg / cholecalciferol 400 unt / docusate sodium 25 mg / ferrous fumarate 29 mg / folic acid 1 mg / niacinamide 15 mg / pyridoxine hydrochloride 20 mg / riboflavin 3 mg / thiamine 3 mg / vitamin b12 0.012 mg / zinc oxide 20 mg oral tablet (1 source) Vitamin B12, Vitamin D, Vitamin C Vit-DSS-Fe Fum-FA ( 19) tablet Every 24 hours. 0 Active hydrocortisone valerate 2 mg/ml topical cream (1 source) Corticosteroid Start: 08-18-2021 hydrocortisone ([facility]Ray) 0.2 % cream Completed/Discontinued Medications Medication Drug Class(es) Dates Sig (Normalized) Sig (Original) ethinyl estradiol / norgestimate (1 source) Progestin, Estrogen Start: 04-06-2016 ORTHO TRI-CYCLEN (28) TABS 0.18/0.215/0.25-35 mcg-as directed NORGESTIM-ETH ESTRAD TRIPHASIC TABS [id number] Mariah Young RN NORETHINDRONE (1 source) Progestin Start: 04-06-2016 LYZA 0.35 MG TABS as directed NORETHINDRONE [id number] Maura Ro Problems Active Problems Problem Classification Problem Date Documented Date Episodic/Chronic Cardiac and circulatory congenital anomalies (1 source) Coarctation of aorta; Translations: [Coarctation of aorta] Onset: 05-02-2016 05-02-2016 Chronic Other connective tissue disease (2 sources) Ganglion, right wrist; Translations: [Ganglion, right wrist] Onset: 08-09-2022 Episodic Other connective tissue disease (2 sources) Pain in right hand; Translations: [Pain in right hand] Onset: 06-14-2022 Episodic Other nutritional; endocrine; and metabolic disorders (1 source) Overweight; Translations: [Overweight] Onset: 03-31-2017 03-31-2017 Chronic Residual codes; unclassified (2 sources) Other specified postprocedural states; Translations: [Other specified postprocedural states] Onset: 07-27-2022 Episodic Past or Other Problems Problem Classification Problem Date Documented Date Episodic/Chronic Nonspecific chest pain (1 source) Chest discomfort; Translations: [Other chest pain] Onset: 06-20-2016 06-20-2016 Episodic Other circulatory disease (1 source) History of repair of atrial septal defect; Translations: [Personal history of (corrected) congenital malformations of heart and circulatory system] Onset: 04-06-2016 04-06-2016 Episodic Syncope (1 source) Syncope; Translations: [Syncope and collapse] Onset: 03-31-2017 03-31-2017 Episodic Unclassified (1 source) Electrocardiogram abnormal; Translations: [Abnormal electrocardiogram [ECG] [EKG]] Onset: 04-15-2016 04-15-2016 Episodic Results Test Name Value Interpretation Reference Range Facil ity Vital Signs Date Time Vital Sign Value Performing Clinician Patricia monroe 03-31-2017 09:18-0400 BMI (Body Mass Index) 28.16 kg/m2 [facility] Work Phone: 03-31-2017 09:18-0400 BP Diastolic 90 mm[Hg] [facility] Work Phone: 03-31-2017 09:18-0400 BP Diastolic 82 mm[Hg] Maura Ro [facility] Work Phone: 03-31-2017 09:18-0400 BP Systolic 142 mm[Hg] Granttalle Jayjay [facility] Work Phone: 03-31-2017 09:18-0400 BP Systolic 132 mm[Hg] Granttalbilly Ro [facility] Work Phone: 03-31-2017 09:18-0400 BP Systolic 140 mm[Hg] Maura Ro [facility] Work Phone: 03-31-2017 09:18-0400 Height 162.56 cm Granttalbilly Ro [facility] Work Phone: 03-31-2017 09:18-0400 Pulse (Heart Rate) 91 /min Maura Ro [facility] Work Phone: 03-31-2017 09:18-0400 Respiratory Rate 18 /min Maura Ro [facility] Work Phone: 03-31-2017 09:18-0400 Weight 74.42 kg Maura Ro [facility] Work Phone: 04-15-2016 [id number] BSA (Body Surface Area) 1.72 m2 [facility] Work Phone: [phone] Pulse Oximetry 99 % [facility] Work Phone: Encounters Encounter Date Encounter Type Care Provider Facility Start: 06-19-2023 End: 06-19-2023 ambulatory [facility] Start: 05-09-2023 End: 05-09-2023 ambulatory [facility] Start: 08-09-2022 End: 08-09-2022 ambulatory DON [facility] Start: 08-03-2022 Telephone encounter Jason parsons MD Work Phone: [facility] Start: 07-27-2022 End: 07-27-2022 ambulatory [facility] Start: 07-19-2022 End: 07-19-2022 ambulatory [facility] Start: 06-14-2022 End: 06-15-2022 ambulatory [facility] Procedures Date Procedure Procedure Detail Performing Clinician Start: 03-31-2017 End: 03-31-2017 DENITA Camacho NP Work Phone: Start: 03-31-2017 End: 03-31-2017 Follow Up Appt 1 year Justice Camacho NP Work Phone: Start: 05-02-2016 End: 06-20-2016 Echocardiography Steve Cain MD Start: 04-15-2016 End: 04-15-2016 DENITA Cain MD Start: 04-15-2016 End: 04-15-2016 Ecg routine ecg w/least 12 lds w/i&r Steve Cain MD Start: 04-15-2016 End: 05-03-2016 Echocardiography Steve Cain MD Start: 04-15-2016 End: 04-15-2016 Follow Up Appt 1 year Steve Cain MD Plan of Treatment Date Care Activity Detail Author Start: 2046 Zoster Vaccines (1 of 2) Zoster Vaccines (1 of 2) [facility] Start: 08-20-2031 DTaP/Tdap/Td Vaccines (7 - Td or Tdap) DTaP/Tdap/Td Vaccines (7 - Td or Tdap) [facility] Start: 04-03-2018 End: 04-03-2018 Appointment Appointment [facility] Work Phone: Start: 2017 Screening for malignant neoplasm of cervix Pap Smear [facility] Start: 04-20-2017 End: 04-20-2017 Appointment Appointment [facility] Work Phone: Start: 03-31-2017 End: 03-31-2017 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[employer] Work Phone: Start: 03-31-2017 End: 03-31-2017 Follow Up Appt 1 year Follow Up Appt 1 year [email or web address] Phone: Start: 05-02-2016 End: 06-20-2016 Ct angiography chest w/contrast/noncontrast CTA Chest, with contrast material(s) [facility] Work Phone: Start: 05-02-2016 End: 06-20-2016 Echocardiography Echocardiogram (complete) [facility] Work Phone: Start: 04-15-2016 End: 04-15-2016 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 Work Phone: Start: 04-15-2016 End: 04-15-2016 Ecg routine ecg w/least 12 lds w/i&r EKG (In office) [facility] Work Phone: Start: 04-15-2016 End: 04-15-2016 Echocardiography Echocardiogram (complete) [facility] Work Phone: Start: 04-15-2016 End: 04-15-2016 Follow Up Appt 1 year Follow Up Appt 1 year [email or web address] Phone: Start: 01-26-2015 Varicella vaccination Varicella Vaccines (1 of 2 - 2-dose childhood series) [facility] Start: 2014 Hepatitis C screening Hepatitis C Screening [facility] Start: 2008 Depression Screening Depression Screening [facility] Start: 03-05-1997 COVID-19 Vaccine (#1) COVID-19 Vaccine (#1) [facility] Start: 1996 HIV screening HIV Screening [facility] Start: 1996 Lipid panel Lipid Panel [facility] Payers Date Payer Category Payer Private Health Insurance [id number] 2022 Private Health Insurance GREGG HIRSCH [id number] 2022-Present [address] [place] [address] Commercial [id number] 1995 Unknown [id number] 1995 Unknown [id number] Private Health Insurance [id number] Social History Date Type Detail Facility Start: 06-14-2022 Tobacco smoking status NHIS Never sm oked tobacco [facility] Start: 06-14-2022 Tobacco use and exposure Smokeless t obacco non-user [facility] Start: 07-27-2022 Alcohol intake Not Asked [facility] Start: 07-19-2022 Alcohol Comment occ [facility] Start: 1995 Sex Assigned At Not on file [facility] Start: 07-30-2022 End: 08-09-2022 Exposure to SARS-CoV-2 (event) Not sure [facility] Clinical Notes 06-14-2022 to 08-04-2022 Telephone Encounter - Don Vernon PA-C - 08/04/2022 4:09 PM ESTTelephone Encounter - Don Vernon PA-C - 08/04/2022 4:09 PM ESTTelephone Encounter - Janeth Sherman RN - 08/04/2022 3:13 PM EST Note Date & Type Note Facility 08-04-2022 Telephone encounter Note Agree. If she would like to have a visit for splint re-wrap I would be happy to see her early next week. She can send a picture as well [facility] [employer] Phone: 08-04-2022 Miscellaneous Notes Agree. If she would like to have a visit for splint re-wrap I would be happy to see her early next week. She can send a picture as well Spoke with patient. She is asking if she can remove the splint now. She states she has developed blisters where the fili wrap rubs against her fingers. Encouraged her to re-wrap the fili. She states she has tried that but didn't help. POST OP PLAN: Operative splint for 2 weeks followed by a cockup wrist splint with range of motion and weightbearing to pain tolerance Explained she needs to keep the splint on until being seen in the office on 08/09/22. She verbalized understanding and agreed with the plan Name of Caller: Saira Relationship to Patient: self Symptoms/Concerns: Saira is asking if she is able to stop wearing her splint. She had a ganglion cyst removed on 07/27/22. Provider: Dr. Ramirez Practice Name: Ortho Name of caller: Saira Contact phone number: [phone] Relationship to Patient: patient Provider: Dr. Ramirez Practice: Ortho Chief Complaint/Reason for Call: Patient called and asked if she could take her splint off early. Cyst removed on 07/27/22 and she reports she is not having any pain but the bandage is causing blisters on her hand. Please call her back and let her know. Thank you Best time of day caller can be reached: any Patient advised that office/PCP has 24-48 business hours to return their call: No documented in this encounter [facility] 08-04-2022 Telephone encounter Note Spoke with patient. She is asking if she can remove the splint now. She states she has developed blisters where the fili wrap rubs against her fingers. Encouraged her to re-wrap the fili. She states she has tried that but didn't help. POST OP PLAN: Operative splint for 2 weeks followed by a cockup wrist splint with range of motion and weightbearing to pain tolerance Explained she needs to keep the splint on until being seen in the office on 08/09/22. She verbalized understanding and agreed with the plan [facility] 08-04-2022 Telephone encounter Note Name of Caller: Saira Relationship to Patient: self Symptoms/Concerns: Saira is asking if she is able to stop wearing her splint. She had a ganglion cyst removed on 07/27/22. Provider: Dr. Ramirez Practice Name: Ortho [facility] 08-03-2022 Telephone encounter Note Name of caller: Saira Contact phone number: [phone] Relationship to Patient: patient Provider: Dr. Ramirez Practice: Ortho Chief Complaint/Reason for Call: Patient called and asked if she could take her splint off early. Cyst removed on 07/27/22 and she reports she is not having any pain but the bandage is causing blisters on her hand. Please call her back and let her know. Thank you Best time of day caller can be reached: any Patient advised that office/PCP has 24-48 business hours to return their call: No [facility] 07-27-2022 Note Patient: Saira Adair Procedure Summary Date: 07/27/22 Room / Location: [address] Operating Room Anesthesia Start: 814 Anesthesia Stop: 902 Procedure: RIGHT dorsal wrist mass excision (Right: Wrist) Diagnosis: Ganglion, right wrist (Ganglion, right wrist [M67.431]) Surgeons: Jason Ramirez MD Responsible Provider: Akira Messina Jr., MD Anesthesia Type: TIVA ASA Status: 2 Anesthesia Type: TIVA Vitals Value Taken Time BP 100/56 07/27/22 0900 Temp 37.4 ?C (99.3 ?F) 07/27/22 09 Pulse 66 07/27/22 0900 Resp 14 07/27/22 1035 SpO2 96 % 07/27/22899 Anesthesia Post Evaluation Patient location during evaluation: PACU Patient participation: complete - patient participated Level of consciousness: awake and alert Pain management: satisfactory to patient Airway patency: patent Dental Injury: no Cardiovascular status: acceptable, blood pressure returned to baseline and hemodynamically stable Respiratory status: acceptable and spontaneous ventilation Hydration status: euvolemic Nausea/Vomiting: controlled No notable events documented. Patient can be discharged once all PACU criteria has been met. [facility] 07-27-2022 Note Patient: Saira Adair Procedure Summary Date: 07/27/22 Room / Location: [address] Operating Room Anesthesia Start: 814 Anesthesia Stop: 902 Procedure: RIGHT dorsal wrist mass excision (Right: Wrist) Diagnosis: Ganglion, right wrist (Ganglion, right wrist [M67.431]) Surgeons: Jason Ramirez MD Responsible Provider: Akira Messina Jr., MD Anesthesia Type: TIVA ASA Status: 2 Anesthesia Type: TIVA Vitals Value Taken Time BP 100/56 07/27/22 0900 Temp 37.4 ?C (99.3 ?F) 07/27/22 0900 Pulse 66 07/27/22 0900 Resp 14 07/27/22 1034 SpO2 96 % 07/27/22 0900 Anesthesia Post Evaluation Patient location during evaluation: PACU Patient participation: complete - patient participated Level of consciousness: awake and alert Pain management: satisfactory to patient Multimodal analgesia pain management approach Airway patency: patent Two or more strategies used to mitigate risk of obstructive sleep apnea Cardiovascular status: acceptable and hemodynamically stable Respiratory status: acceptable Hydration status: acceptable No notable events documented. MIPS #430 PONV Patient did not receive an inhalational anesthetic ([id number] MIPS # 424 Perioperative Temperature Management Anesthesia time was less than 60 minutes (4256F) MIPS #477 Multimodal Pain Management Not emergent case Patient was not administered multimodal pain management Patient reports no pain in PACU MIPS #404 Anesthesiology Smoking Abstinence The patient is not a current smoker (e.g. cigarette, cigar, pipe, e-cigarette/vaping/marijuana) I completed my handoff to the receiving clinician during which we: 1. Identified the patient 2. Identified the responsible provider 3. Reviewed the pertinent medical history 4. Discussed the surgical course 5. Reviewed intra-op anesthesia management and issues during anesthesia 6. Set expectations for post-procedure period 7. Allowed opportunity for questions and acknowledgement of understanding. [facility] 07-27-2022 Note Updated History & Ph ysical The patient's History and Physical of July 19, 2022 was reviewed with the patient and I examined the patient. There was no change. The surgical site was confirmed by the patient and me. Plan: The risks, benefits, expected outcome, and alternative to the recommended procedure have been discussed with the patient. Patient understands and wants to proceed with the procedure. The patient was consented for right wrist dorsal mass excision. I had an extensive discussion with . 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 We discussed both operative and non operative treatment options and Saira Juan R RamJake elected to proceed with surgical intervention. I have discussed with . Saira Adair the potential complications, limitations, expectations, alternatives, and risks of the proposed surgical procedure. Risks discussed include but are not limited to the risk of infection, iatrogenic injury to normal neurovascular structures, persistent pain and disability, unsightly scar, stiffness, complex regional pain syndrome, malunion, non union, hardware failure, need for hardware removal, loss of limb, myocardial infarction, deep vein thrombosis, pulmonary embolism and even . We also discussed the potential risk of COVID-19 exposure or infection and how it could alter her post operative recovery course. She has had full opportunity to ask her questions. I have answered them all to her satisfaction. I feel that . Saira Adair does understand our discussion today and she is comfortable providing informed consent for the procedure. [facility] 07-19-2022 Note Patient: Saira Adair Procedure Information Date/Time: 07/27/2215 Procedure: RIGHT dorsal wrist mass excision (Right: Wrist) - 60 Minutes Location: [address] Operating Room Surgeons: Jason Ramirez MD Relevant Problems Anesthesia (-) Delayed emergence from anesthesia (-) Difficult intravenous access (-) Family history of malignant hyperthermia (-) Motion sickness (-) AGA (obstructive sleep apnea) (-) PONV (postoperative nausea and vomiting) Pulmonary (-) AGA (obstructive sleep apnea) Past Medical History: Past Medical History: No date: Aortic coarctation 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 She has never used smokeless tobacco. ETOH: has no history on file for alcohol use. Social History Substance and Sexual Activity Drug Use Never Family History: No family history on file. Screening: Having periods Clinical information reviewed: Tobacco Allergies Meds Med Hx Surg Hx OB Status Fam Hx Soc Hx Physical Exam Airway Mallampati: I TM distance: >3 FB Neck ROM: full Mouth Open: normal Cardiovascular Dental Comments: No missing teeth Nothing loose or broken No partials or dentures No crowns Pulmonary Abdominal Anesthesia Plan ASA 2 TIVA The patient is not a current smoker. Anesthetic plan and risks discussed with patient. Use of blood products discussed with who consented to blood products. patient is NPO Patient has aorta coarctation that is monitored by cardiology when she is AGA Screening STOP-Bang Total Score: 0 Labs: No results found for: WBC, HGB, HCT, MCV, PLT No results found for: NA, K, CL, CO2, BUN, CREATININE, GLUCOSE, CALCIUM, PROT, BILIRUBINFL, ALKPHOS, AST, ALT, EGFR, GLOB No echocardiogram results found for the past 14 days No results found for this or any previous visit. [facility] 07-19-2022 Note Comprehensive PreSur gical History and Physical ? Name: Saira Adair : 1995 (Age-26 y.o.) Date of Service: Pt seen/examined on 07/19/2022 Procedure Information Date/Time: 07/27/22 0815 Procedure: RIGHT dorsal wrist mass excision (Right: Wrist) - 60 Minutes Location: [address] Operating Room Surgeons: Jason Ramirez MD Chief Complaint: Right wrist mass History Of Present Illness: 26 y.o. female who c/o mass in her RIGHT Wrist. Symptoms have been present for 1 year(s). Described as aching and annoying. Worse with wrist position of extension and repeated movements, weight bearing exercises. Alleviated by nothing. The symptoms started after noticed a bump on her right that waxed and wanes in size. She reports that she have been modifying her behavior to avoid using her wrist Pt has seen the surgeon and elected for above procedure. Denies Hx of HTN, HLD, DM, CAD, CHF, OR, TIA/CVA, DVT/PE, Asthma/COPD, AGA Dental? - no missing teeth Nothing loose or broken No partials or dentures No crowns Hx problems with anesthesia? -no Snore at night? -No >4 METS? 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 She has never used smokeless tobacco. ETOH: has no history on file for alcohol use. Social History Substance and Sexual Activity Drug Use Never Family History: No family history on file. REVIEW OF SYSTEMS: Review of Systems Constitutional: Negative for chills and fever. Respiratory: Negative for shortness of breath. Cardiovascular: Negative for chest pain. Pertinent positives as noted in the HPI. Physical Exam: Physical Exam Constitutional: General: She is awake. She is not in acute distress. Appearance: Normal appearance. HENT: Head: Normocephalic and atraumatic. Eyes: Extraocular Movements: Extraocular movements intact. Conjunctiva/sclera: Conjunctivae normal. Cardiovascular: Rate and Rhythm: Normal rate and regular rhythm. Heart sounds: Murmur heard. Pulmonary: Effort: Pulmonary effort is normal. Breath sounds: Normal breath sounds. Abdominal: Palpations: Abdomen is soft. Musculoskeletal: General: Normal range of motion. Cervical back: Normal range of motion. Skin: General: Skin is warm and dry. Neurological: General: No focal deficit present. Mental Status: She is alert and oriented to person, place, and time. Psychiatric: Mood and Affect: Mood normal. Behavior: Behavior normal. Vitals: Vitals Value Taken Time BP 125/70 07/19/22 1425 Temp 36.6 ?C (97.8 ?F) 07/19/22 1425 Pulse 85 07/19/22 1425 Resp 20 07/19/22 1425 SpO2 98 % 07/19/22 1425 BP 125/70 Pulse 85 Temp 36.6 ?C (97.8 ?F) (Temporal) Resp 20 Ht 1.626 m (5' 4.02 ) Wt 79.2 kg (174 lb 9.6 oz) LMP 07/19/2022 (Approximate) SpO2 98% BMI 29.96 kg/m? Labs: No results found for: WBC, HGB, HCT, MCV, PLT No results found for: NA, K, CL, CO2, BUN, CREATININE, GLUCOSE, CALCIUM, PROT, BILIRUBINFL, ALKPHOS, AST, ALT, EGFR, GLOB CMP (Complete Metabolic Profile) (78251) 2022-04-07 SODIUM 138 POTASSIUM 4.1 CHLORIDE 106 CO2 28 ANION GAP 4 GLUCOSE 86 BUN 12 CREAT 0.67 BUN/CREAT 17.9 T PROTEIN 7.5 ALBUMIN 3.8 GLOBULIN 3.7 ALB/GLOB 1.0 CALCIUM 8.9 T HÉCTOR 0.50 ALT 20 AST 13 ALK PHOS 93 EGFR 114 Adry's Simple Cardiac Risk Index: ADRY'S SIMPLE CARDIAC RISK SCORE: 0 Interpretation: 0 Points Class I 0.5% 1 Point Class II 1.3% 2 Points Class III 3.6% 3+ Points Class IV 9.1% PAT Pain Score: none Postop Pain Management Plan (Pain consult ordered?): Pain consult not indicated at this time ? EKG: No results found for this or any previous visit (from the past 4464 hour(s)). ECHO and EF:None on file No components found for: LVEF, LVEFMODE [facility] 08/18/[address]: Dr. Ashly Pickard MD Status Procedure This (more content not included)... [facility] 07-19-2022 Note Comprehensive PreSur gical History and Physical ? Name: Saira Adair : 1995 (Age-26 y.o.) Date of Service: Pt seen/examined on 07/19/2022 Procedure Information Date/Time: 07/27/22 0815 Procedure: RIGHT dorsal wrist mass excision (Right: Wrist) - 60 Minutes Location: [address] Operating Room Surgeons: Jason Ramirez MD Chief Complaint: Right wrist mass History Of Present Illness: 26 y.o. female who c/o mass in her RIGHT Wrist. Symptoms have been present for 1 year(s). Described as aching and annoying. Worse with wrist position of extension and repeated movements, weight bearing exercises. Alleviated by nothing. The symptoms started after noticed a bump on her right that waxed and wanes in size. She reports that she have been modifying her behavior to avoid using her wrist Pt has seen the surgeon and elected for above procedure. Denies Hx of HTN, HLD, DM, CAD, CHF, OR, TIA/CVA, DVT/PE, Asthma/COPD, AGA Dental? - no missing teeth Nothing loose or broken No partials or dentures No crowns Hx problems with anesthesia? -no Snore at night? -No >4 METS? 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 She has never used smokeless tobacco. ETOH: has no history on file for alcohol use. Social History Substance and Sexual Activity Drug Use Never Family History: No family history on file. REVIEW OF SYSTEMS: Review of Systems Constitutional: Negative for chills and fever. Respiratory: Negative for shortness of breath. Cardiovascular: Negative for chest pain. Pertinent positives as noted in the HPI. Physical Exam: Physical Exam Constitutional: General: She is awake. She is not in acute distress. Appearance: Normal appearance. HENT: Head: Normocephalic and atraumatic. Eyes: Extraocular Movements: Extraocular movements intact. Conjunctiva/sclera: Conjunctivae normal. Cardiovascular: Rate and Rhythm: Normal rate and regular rhythm. Heart sounds: Murmur heard. Pulmonary: Effort: Pulmonary effort is normal. Breath sounds: Normal breath sounds. Abdominal: Palpations: Abdomen is soft. Musculoskeletal: General: Normal range of motion. Cervical back: Normal range of motion. Skin: General: Skin is warm and dry. Neurological: General: No focal deficit present. Mental Status: She is alert and oriented to person, place, and time. Psychiatric: Mood and Affect: Mood normal. Behavior: Behavior normal. Vitals: Vitals Value Taken Time BP 125/70 07/19/22 1425 Temp 36.6 ?C (97.8 ?F) 07/19/22 1425 Pulse 85 07/19/22 1425 Resp 20 07/19/22 1425 SpO2 98 % 07/19/22 1425 BP 125/70 Pulse 85 Temp 36.6 ?C (97.8 ?F) (Temporal) Resp 20 Ht 1.626 m (5' 4.02 ) Wt 79.2 kg (174 lb 9.6 oz) LMP 07/19/2022 (Approximate) SpO2 98% BMI 29.96 kg/m? Labs: No results found for: WBC, HGB, HCT, MCV, PLT No results found for: NA, K, CL, CO2, BUN, CREATININE, GLUCOSE, CALCIUM, PROT, BILIRUBINFL, ALKPHOS, AST, ALT, EGFR, GLOB CMP (Complete Metabolic Profile) ([id number]) 2022-04-07 SODIUM 138 POTASSIUM 4.1 CHLORIDE 106 CO2 28 ANION GAP 4 GLUCOSE 86 BUN 12 CREAT 0.67 BUN/CREAT 17.9 T PROTEIN 7.5 ALBUMIN 3.8 GLOBULIN 3.7 ALB/GLOB 1.0 CALCIUM 8.9 T HÉCTOR 0.50 ALT 20 AST 13 ALK PHOS 93 EGFR 114 Adry's Simple Cardiac Risk Index: ADRY'S SIMPLE CARDIAC RISK SCORE: 0 Interpretation: 0 Points Class I 0.5% 1 Point Class II 1.3% 2 Points Class III 3.6% 3+ Points Class IV 9.1% PAT Pain Score: none Postop Pain Management Plan (Pain consult ordered?): Pain consult not indicated at this time ? EKG: No results found for this or any previous visit (from the past 4464 hour(s)). ECHO and EF:None on file No components found for: LVEF, LVEFMODE [facility] 08/18/[address]: Dr. Ashly Pickard MD Status Procedure This (more content not included)... [facility] 06-14-2022 Note Angela C. Artificial Intelligence Specialist for Dr. Jason Ramirez F: [phone] If you are planning to schedule surgery with your doctor, or your injury prevents you from returning to work, please be aware that there is a $15 administrative processing fee for any FMLA and/or short term disability paperwork. Forms can faxed to [phone] or may be dropped off in person at our office. We will be unable to complete your request without receipt of this $15 fee. Please do not hesitate to call with any questions or concerns at [phone]. [facility] Summary Purpose Family History No Family History Records FoundNo Family History Records FoundNo Family History Records Found Advance Directives No Advanced Directives Records FoundLatest Code Status on File Code Status Date Activated Date Inactivated Comments Full Code 07/27/2022 6:13 AM 07/27/2022 11:40 AM Additional Source Comments INFORMATION SOURCE (unrecogn ized section and content) DATE CREATED AUTHOR AUTHOR'S ORGANIZ ATION 08/10/2022 [facility] DATE CREATED AUTHOR AUTHOR'S ORGANIZ ATION 06/20/2023 [facility] Care Teams (unrecognized sec tion and content) FOR RECORDS PERTAINING TO PATIENTS WHO ARE OR HAVE BEEN ENROLLED IN A CHEMICAL DEPENDENCY/SUBSTANCEABUSE PROGRAM, SOME INFORMATION MAY BE OMITTED. This clinical summary was aggregated from multiple sources. Caution should be exercised in using it in the provision of clinical care. This summary normalizes information from multiple sources, and as a consequence, information in this document may materially change the coding, format and clinical context of patient data. In addition, data may be omitted in some cases. CLINICAL DECISIONS SHOULD BE BASED ON THE PRIMARY CLINICAL RECORDS. [employer] [facility]. provides no warranty or guarantee of the accuracy or completeness of information in this document.
[2023-07-04 07:31] LABS: Absolute Lymphocyte Count 1.95 X10^3/uL (0.83-4.51); Absolute Neutrophil Count 6.7 X10^3/uL (2.0-7.7); Basophil# 0.02 X10^3/uL; Basophil% 0.2 % (0-1); Eosinophil# 0.07 X10^3/uL; Eosinophils% 0.8 % (0-5); Hematocrit 32.7 % (37-47); Hemoglobin 11.1 g/dL (12.0-15.0); Lymphocyte # 1.95 X10^3/ul (0.83-4.51); Lymphocyte % 21.3 % (19-41); Mean Corp Hgb Conc 33.9 g/dL (32-36); Mean Corpuscular Hgb 28.8 pg (27.0-32.0); Mean Corpuscular Volume 84.9 fL (81-99); Mean Platelet Vol. 9.5 fl (6.2-12.0); Monocyte# 0.32 X10^3/uL; Monocyte% 3.5 % (0-10); NRBC Flagged by Analyzer 0 % (0-5); Neutrophil % 73.2 % (47-70); Platelet Count 289 K/mm3 (150-450); RBC Distribution Width CV 12.6 % (11.6-14.6); RBC Distribution Width SD 38.8 fl (35.1-43.9); Red Blood Count 3.85 M/mm3 (4.2-5.4); White Blood Count 9.2 K/mm3 (4.4-11.0)
[2023-07-04 07:54] LABS: Glucose Challenge Gest 1H 50g 131 mg/dL (70-140)
[2023-07-04 10:00] LABS: HIV - WCH Non-Reactive (Nonreactive); Syphilis Antibodies Non-reactive
== END | disposition home or self-care (01) ==
LOC: LAB 07:10
PROVIDERS: PCP Family Medicine; Referring Provider Obstetrics & Gynecology; Visit Provider Obstetrics & Gynecology
DX: O09.90 Supervision of high risk pregnancy, unspecified, unspecified trimester (principal); Z13.1 Encounter for screening for diabetes mellitus; Z3A.00 Weeks of gestation of pregnancy not specified
CPT/HCPCS: 36415; 82950; 85025; 86703; 86780

== ENCOUNTER → 2023-08-09 | Outpatient (CLI) | payer OTHER, SELFPAY ==
--- NOTE | 2023-08-09 08:56 | US_ITS ---
STUDY: SECOND AND THIRD TRIMESTER OBSTETRICAL ULTRASOUND - LIMITED REASON FOR EXAM: Female, 27 years old . growth. History of maternal heart defect. LMP: December 22, 2022. PRIOR ULTRASOUND: None. TECHNIQUE: Transabdominal TECHNICAL QUALITY: Adequate. FINDINGS: There is a single intrauterine fetus. The fetus is in a cephalic presentation. There is demonstrated cardiac activity with a heart rate of 133 bpm. There is a normal amniotic fluid volume. The largest amniotic fluid pocket measures 6.8 cm. The amniotic fluid index (ELVIS) is 18.6 cm. The placenta is posterior in location and is not low lying. There are Grade 1 placental changes. The cervix was not measured due to the head position. BIOMETRY: BPD: 8.5 cm: 34 weeks, 0 days HC: 31 cm: 34 weeks, 4 days AC: 29.6 cm: 33 weeks, 4 days FL: 6.4 cm: 32 weeks, 6 days Age by LMP: 32 weeks, 6 days. NAMITA by LMP: September 28, 2023. age by current US: 33 weeks, 6 days. NAMITA by current US: September 21, 2023. Estimated weight: 2225 grams, +/- 334 grams, 63 percentile. US/OB Limited With Biometrics IMPRESSION: Single live intrauterine gestation with a mean gestational age of 33 weeks and 6 days. Electronically Signed: Conrad Root MD at 14:49 EST ,
--- OUTSIDE RECORDS SUMMARY | 2023-08-09 10:11 | XMS RPT_ITS | CCD ---
Author Name Unknown Address [address] [place] [address] Organization [facility] Care Team Providers Care Radio Interference Investigator Name Role Phone Maura Ro Unavailable Unavailable [...] Unavailable Gregg Negro MD Primary Care Provider [phone] HANSA MARQUEZ Attending Unavailable NO PRIMARY MD CATARINO Primary Care Unavailable FERNIE HARLEY Referring Unavailabl e HANSA MARQUEZ Referring Unavailable JUAN JOSE NEGRO Attending Unavailable HANSA MARQUEZ Primary Care Unavailable Allergies Allergy Classification Reported Allergen(s) Allergy Type Date of Onset Reaction(s) Facility (2 sources) natural latex rubber; Translations: [LATEX] allergy to substance 04-06-20 16 rash [facility] Work Phone: (1 source) sulfamethoxazole / trimethoprim Drug Allergy 04-06-20 16 cramping [facility] Work Phone: (1 source) Latex Propensity to adverse reactions 06-14-19 23 Rash [facility] (1 source) Sulfamethoxazole Allergy to substance 03-19-20 21 Itching, Unknown Spotlime Medications Current Medications Medication Drug Class(es) Dates [...] 0.18/0.215/0.25-35 mcg-as directed NORGESTIM-ETH ESTRAD TRIPHASIC TABS [id number] Mariah Young RN NORETHINDRONE (1 source) Progestin Start: 04-06-2016 LYZA 0.35 MG TABS as directed NORETHINDRONE [id number] Maura Ro Problems Active Problems Problem Classification [...] 09:18-0400 BP Diastolic 82 mm[Hg] Maura Ro [facility] Work Phone: 03-31-2017 09:18-0400 BP Systolic 142 mm[Hg] Granttalle Jayjay [facility] Work Phone: 03-31-2017 09:18-0400 BP Systolic 132 mm[Hg] Granttalbilly Ro [facility] Work Phone: 03-31-2017 09:18-0400 BP Systolic 140 mm[Hg] Maura Ro [facility] Work Phone: 03-31-2017 09:18-0400 Height 162.56 cm Granttalbilly Ro [facility] Work Phone: 03-31-2017 09:18-0400 Pulse (Heart Rate) 91 /min Maura Ro [facility] Work Phone: 03-31-2017 09:18-0400 Respiratory Rate 18 /min Maura Ro [facility] Work Phone: 03-31-2017 09:18-0400 Weight 74.42 kg Maura Ro [facility] Work Phone: 04-15-2016 [id number] BSA (Body Surface Area) 1.72 m2 [facility]a [facility] Work Phone: [phone] Pulse Oximetry 99 % [facility]a [facility] Work Phone: Encounters Encounter Date Encounter Type Care Provider Facility Start: 06-19-2023 End: 06-19-2023 ambulatory [facility] Start: 05-09-2023 End: 05-09-2023 ambulatory [facility] Start: 08-09-2022 End: 08-09-2022 ambulatory DON [facility] Start: 08-03-2022 Telephone encounter Jason parsons MD Work Phone: [facility] Start: 07-27-2022 End: 07-27-2022 ambulatory [facility] Start: 07-19-2022 End: 07-19-2022 ambulatory [facility] Start: 06-14-2022 End: 06-15-2022 ambulatory [facility] Procedures Date Procedure Procedure Detail [...] of 2) Zoster Vaccines (1 of 2) [facility] Start: 08-20-2031 DTaP/Tdap/Td Vaccines (7 - Td or Tdap) DTaP/Tdap/Td Vaccines (7 - Td or Tdap) [facility] Start: 04-03-2018 End: 04-03-2018 Appointment Appointment [facility] Work Phone: Start: 2017 Screening for malignant neoplasm of cervix Pap Smear [facility] Start: 04-20-2017 End: 04-20-2017 Appointment Appointment [facility] Work Phone: Start: 03-31-2017 End: 03-31-2017 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 [facility] Work Phone: Start: 04-15-2016 End: 04-15-2016 Ecg routine ecg w/least 12 lds w/i&r EKG (In office) [facility] Work Phone: Start: 04-15-2016 End: 04-15-2016 Echocardiography Echocardiogram (complete) [facility] Work Phone: Start: 04-15-2016 End: 04-15-2016 Follow Up Appt 1 year Follow Up Appt 1 year [employer] Phone: Start: 01-26-2015 Varicella vaccination Varicella Vaccines (1 of 2 - 2-dose childhood series) [facility] Start: 2014 Hepatitis C screening Hepatitis C Screening [facility] Start: 2008 Depression Screening Depression Screening [facility] Start: 03-05-1997 COVID-19 Vaccine (#1) COVID-19 Vaccine (#1) [facility] Start: 1996 HIV screening HIV Screening [facility] Start: 1996 Lipid panel Lipid Panel [facility] Payers Date Payer Category Payer Private Health Insurance [id number] 2022 Private Health Insurance GREGG HIRSCH [id number] 2022-Present [address] [place] [address] Commercial [id number] 1995 Unknown [id number] 1995 Unknown [id number] Private Health Insurance [id number] Social History Date Type Detail Facility Start: 06-14-2022 Tobacco smoking status NHIS Never sm oked tobacco [facility] Start: 06-14-2022 Tobacco use and exposure Smokeless t obacco non-user [facility] Start: 07-27-2022 Alcohol intake Not Asked [facility] Start: 07-19-2022 Alcohol Comment occ [facility] Start: 1995 Sex Assigned At Not on file S [facility] Start: 07-30-2022 End: 08-09-2022 Exposure to SARS-CoV-2 (event) Not sure [facility] Clinical Notes 06-14-2022 to 08-04-2022 Telephone Encounter [...] She can send a picture as well [employer] Phone: 08-04-2022 Miscellaneous Notes Agree. If she [...] Name of caller: Saira Contact phone number: [phone] Relationship to Patient: patient Provider: Dr. Ramirez [...] their call: No documented in this encounter [facility] 08-04-2022 Telephone encounter Note Spoke with patient. [...] verbalized understanding and agreed with the plan [facility] 08-04-2022 Telephone encounter Note Name of Caller: Saira Relationship to Patient: self Symptoms/Concerns: Saira is asking if she is able to stop wearing her splint. She had a ganglion cyst removed on 07/27/22. Provider: Dr. Ramirez Practice Name: Ortho [facility] 08-03-2022 Telephone encounter Note Name of caller: Saira Contact phone number: [phone] Relationship to Patient: patient Provider: Dr. Ramirez [...] business hours to return their call: No [facility] 07-27-2022 Note Patient: Saira Adair Procedure Summary Date: 07/27/22 Room / Location: [address] Operating Room Anesthesia Start: 814 Anesthesia [...] once all PACU criteria has been met. [facility] 07-27-2022 Note Patient: Saira Adair Procedure Summary Date: 07/27/22 Room / Location: [address] Operating Room Anesthesia Start: 814 Anesthesia [...] opportunity for questions and acknowledgement of understanding. 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 We discussed both [...] comfortable providing informed consent for the procedure. [facility] 07-19-2022 Note Patient: Saira Adair Procedure Information Date/Time: 07/27/2215 Procedure: RIGHT dorsal wrist mass excision (Right: Wrist) - 60 Minutes Location: [address] Operating Room Surgeons: Jason Ramirez MD [...] found for this or any previous visit. [facility] 07-19-2022 Note Comprehensive PreSur gical History and Physical ? Name: Saira Adair : 1995 (Age-26 y.o.) Date of Service: Pt seen/examined on 07/19/2022 Procedure Information Date/Time: 07/27/22 0815 Procedure: RIGHT dorsal wrist mass excision (Right: Wrist) - 60 Minutes Location: [address] Operating Room Surgeons: Jason Ramirez MD [...] Hx of HTN, HLD, DM, CAD, CHF, UT, TIA/CVA, DVT/PE, Asthma/COPD, AGA Dental? - no [...] ALT, EGFR, GLOB CMP (Complete Metabolic Profile) ([id number]) 2022-04-07 SODIUM 138 POTASSIUM 4.1 CHLORIDE 106 [...] file No components found for: LVEF, LVEFMODE [facility] 08/18/[address]: Dr. Ashly Pickard MD Status Procedure This (more content not included)... [facility] 07-19-2022 Note Comprehensive PreSur gical History and Physical ? Name: Saira Adair : 1995 (Age-26 y.o.) Date of Service: Pt seen/examined on 07/19/2022 Procedure Information Date/Time: 07/27/22 0815 Procedure: RIGHT dorsal wrist mass excision (Right: Wrist) - 60 Minutes Location: [address] Operating Room Surgeons: Jason Ramirez MD [...] Hx of HTN, HLD, DM, CAD, CHF, UT, TIA/CVA, DVT/PE, Asthma/COPD, AGA Dental? - no [...] ALT, EGFR, GLOB CMP (Complete Metabolic Profile) ([id number]) 2022-04-07 SODIUM 138 POTASSIUM 4.1 CHLORIDE 106 [...] file No components found for: LVEF, LVEFMODE [facility] 08/18/[address]: Dr. Ashly Pickard MD Status Procedure This (more content not included)... [facility] 06-14-2022 Note Angela C. Test Automation Architect for Dr. Jason Ramirez F: [phone] If you are planning to schedule surgery with your doctor, or your injury prevents you from returning to work, please be aware that there is a $15 administrative processing fee for any FMLA and/or short term disability paperwork. Forms can faxed to [phone] or may be dropped off in person at our office. We will be unable to complete your request without receipt of this $15 fee. Please do not hesitate to call with any questions or concerns at [phone]. [facility] Summary Purpose Family History No Family History Records FoundNo Family History Records FoundNo Family History Records Found Advance Directives No Advanced Directives Records FoundLatest Code Status on File Code Status Date Activated Date Inactivated Comments Full Code 07/27/2022 6:13 AM 07/27/2022 11:40 AM Additional Source Comments INFORMATION SOURCE (unrecogn ized section and content) DATE CREATED AUTHOR AUTHOR'S ORGANIZ ATION 08/10/2022 [facility] DATE CREATED AUTHOR AUTHOR'S ORGANIZ ATION 06/20/2023 [facility] Care Teams (unrecognized sec tion and content) [...] BE BASED ON THE PRIMARY CLINICAL RECORDS. [employer] [facility]. provides no warranty or guarantee of the accuracy or completeness of information in this document.
== END | disposition home or self-care (01) ==
LOC: OPUS 08:56
PROVIDERS: PCP Family Medicine; Referring Provider Obstetrics & Gynecology; Visit Provider Obstetrics & Gynecology
DX: O09.91 Supervision of high risk pregnancy, unspecified, first trimester (principal); Q21.10 Atrial septal defect, unspecified; Q25.1 Coarctation of aorta; Z3A.00 Weeks of gestation of pregnancy not specified; O99.891 Other specified diseases and conditions complicating pregnancy
CPT/HCPCS: 76816

== ENCOUNTER → 2023-08-30 | Outpatient (CLI) | payer OTHER, SELFPAY | END | disposition home or self-care (01) | PROVIDERS: PCP Family Medicine; Referring Provider Obstetrics & Gynecology; Visit Provider Obstetrics & Gynecology | DX: O09.90 Supervision of high risk pregnancy, unspecified, unspecified trimester (principal); Z3A.00 Weeks of gestation of pregnancy not specified | CPT/HCPCS: 87081 ==

== ENCOUNTER → 2023-09-07 | Outpatient (CLI) | payer OTHER, SELFPAY ==
--- NOTE | 2023-09-07 07:58 | US_ITS ---
STUDY: SECOND AND THIRD TRIMESTER OBSTETRICAL ULTRASOUND - LIMITED REASON FOR EXAM: Female, 28 years old growth LMP: December 22, 2022. PRIOR ULTRASOUND: Comparison is made with prior study August 09, 2023. TECHNIQUE: Transabdominal TECHNICAL QUALITY: Adequate. FINDINGS: There is a single intrauterine fetus. The fetus is in a cephalic presentation. There is demonstrated cardiac activity with a heart rate of 1:30 bpm. There is a normal amniotic fluid volume. The largest amniotic fluid pocket measures 6.9 cm. The amniotic fluid index (ELVIS) is 13.3 cm. The placenta is right lateral in location and is not low lying. There are Grade 1 placental changes. The cervix was not measured due to the head position. BIOMETRY: BPD: 8.96 cm: 36 weeks, 2 days HC: 33.44 cm: 38 weeks, 2 days AC: 34.2 cm: 38 weeks, 1 days FL: 6.8 cm: 35 weeks, 0 days Age by LMP: 37 weeks, 0 days. NAMITA by LMP: September 28, 2019. age by prior US: 38 weeks, 0 days. NAMITA by prior US: September 20, 2021. age by current US: 37 weeks, 0 days. NAMITA by current US: September 28, 2023. Estimated weight: 3124 grams, +/- 469 grams, 59 percentile. US/OB Limited With Biometrics IMPRESSION: Single live intrauterine gestation with a mean gestational age of 38 weeks. The measurements obtained today fall within normal expected range. Electronically Signed: Conrad Root MD at 10:32 EDT ,
[2023-09-07 11:48] LABS: Absolute Lymphocyte Count 1.84 X10^3/uL (0.83-4.51); Basophil# 0.05 X10^3/uL; Basophil% 0.5 % (0-1); Eosinophil# 0.06 X10^3/uL; Eosinophils% 0.6 % (0-5); Hematocrit 36.1 % (37-47); Lymphocyte # 1.84 X10^3/ul (0.83-4.51); Lymphocyte % 17.2 % (19-41); Mean Corp Hgb Conc 33.2 g/dL (32-36); Mean Corpuscular Volume 84.3 fL (81-99); Mean Platelet Vol. 9.7 fl (6.2-12.0); Monocyte# 0.59 X10^3/uL; Monocyte% 5.5 % (0-10); NRBC Flagged by Analyzer 0 % (0-5); Neutrophil # 8.02 X10^3/uL (2.7-7.7); Neutrophil % 74.9 % (47-70); Platelet Count 249 K/mm3 (150-450); RBC Distribution Width CV 13.5 % (11.6-14.6); RBC Distribution Width SD 41.6 fl (35.1-43.9); Red Blood Count 4.28 M/mm3 (4.2-5.4); White Blood Count 10.7 K/mm3 (4.4-11.0)
[2023-09-07 12:04] LABS: ALB/GLOB Ratio 0.6 RATIO (0.9-2.4); AST(SGOT) 27 U/L (15-37); Alanine Aminotransfer ALT/SGPT 27 U/L (13-56); Albumin, Serum 2.7 g/dL (3.2-5.0); Alkaline Phosphatase 146 U/L (45-117); Anion Gap 8 (5-15); BUN 8 mg/dL (7-18); Calcium,Total 9.1 mg/dL (8.5-10.1); Chloride 106 mmol/L (98-107); Creatinine, Serum 0.66 mg/dL (0.55-1.02); EST Glomerular Filtration Rate 113 mL/min (>60); Est Glom Filt Rate - Afr Amer 137 mL/min (>60); Globulin 4.2 g/dL (2.2-4.2); Glucose 84 mg/dL (74-106); Potassium 3.8 mmol/L (3.5-5.1); Protein, Total 6.9 g/dL (6.4-8.2); Sodium Level 136 mmol/L (136-145)
[2023-09-07 12:08] LABS: Protein, Urine (Random) 13.2 mg/dL (<11.9); Protein:Creat Ratio 193 mg/g CRE (0-200)
== END | disposition home or self-care (01) ==
PROVIDERS: Obstetrics & Gynecology; PCP Family Medicine; Referring Provider Obstetrics & Gynecology; Visit Provider Obstetrics & Gynecology
DX: O16.3 Unspecified maternal hypertension, third trimester (principal); O09.91 Supervision of high risk pregnancy, unspecified, first trimester; Q21.10 Atrial septal defect, unspecified; O99.891 Other specified diseases and conditions complicating pregnancy; Q25.1 Coarctation of aorta; Z3A.00 Weeks of gestation of pregnancy not specified
CPT/HCPCS: 36415; 76816; 80053; 82570; 84156; 85025

== ENCOUNTER → 2023-09-12 | Outpatient (CLI) | payer OTHER, SELFPAY ==
[2023-09-12 14:29] LABS: Absolute Lymphocyte Count 2.42 X10^3/uL (0.83-4.51); Absolute Neutrophil Count 7.1 X10^3/uL (2.0-7.7); Basophil# 0.02 X10^3/uL; Basophil% 0.2 % (0-1); Eosinophil# 0.04 X10^3/uL; Eosinophils% 0.4 % (0-5); Hemoglobin 11.7 g/dL (12.0-15.0); Lymphocyte # 2.42 X10^3/ul (0.83-4.51); Lymphocyte % 23.7 % (19-41); Mean Corp Hgb Conc 33.4 g/dL (32-36); Mean Corpuscular Hgb 27.9 pg (27.0-32.0); Mean Corpuscular Volume 83.5 fL (81-99); Mean Platelet Vol. 9.9 fl (6.2-12.0); Monocyte# 0.54 X10^3/uL; Monocyte% 5.3 % (0-10); NRBC Flagged by Analyzer 0 % (0-5); Neutrophil # 7.07 X10^3/uL (2.7-7.7); Neutrophil % 69.2 % (47-70); Platelet Count 237 K/mm3 (150-450); RBC Distribution Width CV 13.5 % (11.6-14.6); RBC Distribution Width SD 41.1 fl (35.1-43.9); Red Blood Count 4.19 M/mm3 (4.2-5.4); White Blood Count 10.2 K/mm3 (4.4-11.0)
[2023-09-12 14:57] LABS: Creatinine, Urine (random) < 13.00 mg/dL (NO RANGE EST.); Protein, Urine (Random) < 6.0 mg/dL (<11.9)
[2023-09-12 15:01] LABS: ALB/GLOB Ratio 0.7 RATIO (0.9-2.4); AST(SGOT) 33 U/L (15-37); Alanine Aminotransfer ALT/SGPT 25 U/L (13-56); Albumin, Serum 2.7 g/dL (3.2-5.0); Alkaline Phosphatase 144 U/L (45-117); Anion Gap 9 (5-15); BUN 6 mg/dL (7-18); BUN/Creat Ratio 11.8 RATIO (10-20); Chloride 103 mmol/L (98-107); Creatinine, Serum 0.51 mg/dL (0.55-1.02); EST Glomerular Filtration Rate 154 mL/min (>60); Est Glom Filt Rate - Afr Amer 187 mL/min (>60); Globulin 4.1 g/dL (2.2-4.2); Glucose 82 mg/dL (74-106); Potassium 3.7 mmol/L (3.5-5.1); Protein, Total 6.8 g/dL (6.4-8.2); Sodium Level 133 mmol/L (136-145); Uric Acid 4.3 mg/dL (2.6-6.0)
== END | disposition home or self-care (01) ==
LOC: PAVLAB 13:56
PROVIDERS: PCP Family Medicine; Referring Provider Obstetrics & Gynecology; Visit Provider Obstetrics & Gynecology
DX: Z87.59 Personal history of other complications of pregnancy, childbirth and the puerperium (principal)
CPT/HCPCS: 36415; 80053; 82570; 84156; 84550; 85025

== ENCOUNTER 2023-09-20 18:56 | Inpatient (IN) | payer OTHER, SELFPAY ==
[2023-09-20 19:38] VITALS: BP 122/67; PULSE 86; O2SAT 99
[2023-09-20 19:40] VITALS: RESP 16; TEMP 37.1
[2023-09-20 20:05] VITALS: BMI 36.3
[2023-09-20 20:21] LABS: Absolute Lymphocyte Count 2.19 X10^3/uL (0.83-4.51); Basophil# 0.03 X10^3/uL; Basophil% 0.2 % (0-1); Eosinophil# 0.02 X10^3/uL; Eosinophils% 0.2 % (0-5); Hemoglobin 11.3 g/dL (12.0-15.0); Lymphocyte # 2.19 X10^3/ul (0.83-4.51); Mean Corp Hgb Conc 33.2 g/dL (32-36); Mean Corpuscular Hgb 27.6 pg (27.0-32.0); Mean Corpuscular Volume 83.1 fL (81-99); Mean Platelet Vol. 10.3 fl (6.2-12.0); Monocyte# 0.61 X10^3/uL; Monocyte% 4.7 % (0-10); NRBC Flagged by Analyzer 0 % (0-5); Neutrophil # 9.95 X10^3/uL (2.7-7.7); Platelet Count 250 K/mm3 (150-450); RBC Distribution Width CV 13.2 % (11.6-14.6); Red Blood Count 4.09 M/mm3 (4.2-5.4); White Blood Count 12.9 K/mm3 (4.4-11.0)
[2023-09-20] MEDS: miSOPROStol 25 MCG TABLET PO (20:31)
[2023-09-20 20:54] LABS: Syphilis Antibodies Non-reactive
[2023-09-21] VITALS (66 sets, daily range): BP systolic 90–157; BP diastolic 46–94; PULSE 66–96; RESP 16–18; TEMP 36.3–37; O2SAT 95–100
[2023-09-21] MEDS: miSOPROStol 25 MCG TABLET PO ×2 (00:16→04:23)
[2023-09-21] MEDS: Oxytocin 15 Units/NS 250ml 15 UNITS/250 ML IV.SOLN 2 UNITS IV (10:35)
[2023-09-21] MEDS: Lactated Ringers 1,000 ML 50 ML IV (10:35)
[2023-09-21] MEDS: LACTATED RINGERS 500 ML 999 ML IV (14:35)
[2023-09-21] MEDS: fentaNYL-bupivacaine (epidural) 100 ML BAG EPIDURAL (15:34)
[2023-09-21] MEDS: Mag Hydrox/Al Hydrox/Simeth 30 ML UDC PO (17:27)
[2023-09-21] MEDS: Acetaminophen 500 MG Tablet PO (17:27)
--- NOTE | 2023-09-21 17:43 | HP.PCM.OB_ITS ---
HPI - General General Date of Admission: 09/20/23 HPI Narrative MADDISON ADAIR, is a 28 F who presents for IOL secondary to GHTN no vb lof admits good fm Maternal Data Information NAMITA Calculator Estimated Delivery Date Method Current WG Current Estimate 09/28/23 LMP (Certain) 39w 0d PFSH PFSH Medical History ASD (atrial septal defect) Cardiology follow-up encounter Coarctation of aorta Contraception management Elevated blood pressure reading without diagnosis of hypertension Gastric reflux High cholesterol History of edema Non-smoker Obesity Preeclampsia Vaginal delivery Home Medications vitamin no.102-iron 90 mg-folate 1 mg-dha 200 mg capsule 1 cap PO DAILY 02/06/20 [History Last Taken 10/04/21 21:00] aspirin 81 mg tablet,delayed release (Adult Aspirin Regimen) 81 mg PO DAILY 04/11/23 [History Last Taken Unknown] ondansetron HCl 4 mg tablet 4 mg PO Q6H PRN nausea and vomiting #30 tabs 06/20/23 [Rx Last Taken Unknown] Allergy/AdvReac Type Severity Reaction Status Date / Time latex AdvReac Itching Verified 09/20/23 20:17 sulfamethoxazole AdvReac Itching Verified 09/20/23 20:17 [From Febra] trimethoprim [From Febra] AdvReac Itching Verified 09/20/23 20:17 Family History Mother Hypertension Surgical History (Updated 09/20/23 @ 20:09 by Catherine Keita) H/O atrial septal defect repair (2002) History of cardiac catheterization History of surgery History of surgical removal of ganglion cyst History of wisdom tooth extraction Social History adopted: No household members: spouse and children number of children: 1 current occupational status: employed current occupation: [employer] current occupational exposures/hazards: No pets and animals: Yes pets and animals: dog(s) history of recent travel: No sexually active: Yes Smoking Status: Never smoker alcohol intake: never details: not during substance use type: does not use well-balanced diet: daily or most days caffeine: Yes Type: coffee Number of servings: 1 eating out: 1-3 times/week during the past year weight has: decreased > 10 lbs what type of physical activity do you participate in: walking frequency: 3-4 times per week duration: 15-30 minutes/day dm/druze: Mandaen seatbelt use: always do you feel safe at home: Yes additional social history: spouse - Alvin (tati) History 2 Elective abortions Hx Para 1 Spontaneous abortions Hx # Term Pregnancies Ectopic pregnancies Hx # Pregnancies Multiple births # of living children 1 Past Pregnancies Del. Date Name GA/Weeks Outcome Route Bth Weight Infant Gen Labor Lgth Anesthesia Del Locatn Provider FOB 10/08/21 SUSAN 39 live - full term 6#13oz Female 51 gary rs epidural WC Turner Esquivel Delivery Date: 10/08/21 Last Updated by: Dianne Dong IOL pre e Visit Details Expected Delivery Route/Plan Labor Preferences- labor support person: [] labor intervention preferences: [] pain management options preferred: epidural cut cord/dad catch: yes : yes PP control planned: copper iud or mirena iud discussed possible routes of delivery and associated risks: [] special requests: [] Plans Covid status: declined Flu vaccine: given Tdap vaccine: given Rhogam: na LARC form signed: [] movement and labor precautions reviewed. Problem list reviewed and updated with the most current plan of care details and appropriate orders placed. Relevant counseling for the gestational age provided. Continue routine care and follow up unless otherwise noted in visit notes/problem list details OB Flowsheet Initial Weight: Not Recorded Date -?-?-?-?-?-?-?-?-?-?-?-?- EGA Weight BP Urine Prot -?-?-?-?-?-?-?-?-?-?-?-?- Glucose FHR FuHt Pres Dilation -?-?-?-?-?-?-?-?-?-?-?-?- Effaced St Visit Note 02/23/23 -?-?-?-?-?-?-?-?-?-?-?-?- 9w 0d 174 lb 6 oz 130/75 130/75 -?-?-?-?-?-?--?-?-?-?-?-?- 160 -?-?-?-?-?-?-?-?-?-?-?-?- SM CRL cons with LMP 2 cm 03/21/23 -?-?-?-?-?-?-?-?-?-?-?-?- 12w 5d 178 lb 2 oz 116/74 Nega tive -?-?-?-?-?-?-?-?-?-?-?-?- Negative -?-?-?-?-?-?-?-?-?-?-?-?- KW-no vb/crampin g. anatomy US ordered. strong FHR visualized with handheld US today 04/17/23 -?-?-?-?-?-?-?-?-?-?-?-?- 16w 4d 180 lb 4 oz 130/70 Nega tive -?-?-?-?-?-?-?-?-?-?-?-?- Negative 151 -?-?-?-?-?-?-?-?-?-?-?-?- JV- no spotting, some cramping. planning echo at 24 weeks for h/o ASD/ cooarctation (mild) 05/15/23 -?-?-?-?-?-?-?-?-?-?-?-?- 20w 4d 186 lb 8 oz 133/77 Nega tive -?-?-?-?-?-?-?-?-?-?-?-?- Negative 144 -?-?-?-?-?-?-?-?-?-?-?-?- JV- no lof, vagi nal bleeding, + fm, mild cramping 06/19/23 -?-?-?-?-?-?-?-?--?-?-?-?- 25w 4d 193 lb 6 oz 130/77 Nega tive -?-?-?-?-?-?-?-?-?-?-?-?- Negative 140 -?-?-?-?-?-?-?-?-?-?-?-?- JV- c/o vaginal odor and greenish dc. exam is not very impressive but sending off red top tube. had echo today and was normal. no recommendations to follow up in a month for growth scans, pt states had growth scans with her last baby. 07/06/23 -?-?-?-?-?-?-?-?-?-?-?-?- 28w 0d 197 lb 8 oz 123/75 -?-?-?-?-?-?-?-?-?-?-?-?- 140 28 -?-?-?-?-?-?-?-?-?-?-?-?- SM- no vb lof go od fm no regular ctx. discussed IUDs and delivery preferences. 07/19/23 -?-?-?-?-?-?-?-?-?-?-?-?- 29w 6d 200 lb 4 oz 123/70 Nega tive -?-?-?-?--?-?-?-?-?-?-?-?- Negative 144 30 -?-?-?-?-?-?-?-?-?-?-?-?- JV- no lof, vagi nal bleeding or dec fm. no complaints today 08/01/23 -?-?-?-?-?-?-?-?-?-?-?-?- 31w 5d 203 lb 124/79 Negative -?-?-?-?-?-?-?-?-?-?-?-?- Negative 132 34 -?-?-?-?-?-?-?-?-?-?-?-?- MH-No VB, LOF. G ood FM. No CTX. Has growth US 08/0908/16/23 -?-?-?-?-?-?-?-?-?-?-?-?- 33w 6d 203 lb 8 oz 127/76 Nega tive -?-?-?-?-?-?-?-?-?-?-?-?- Negative 145 34 -?-?-?--?-?-?-?-?-?-?-?-?- JV- no lof, vagi nal bleeding, or dec fm. no complaints today. normal growth and fluid on 08/09 scan, 08/30/23 -?-?-?-?-?-?-?-?-?-?-?-?- 35w 6d 207 lb 2 oz 132/82 -?-?-?-?-?-?-?-?-?-?-?-?- 147 36 Cephalic -?-?-?-?-?-?-?-?-?-?-?-?- JV- no lof, vagi nal bleeding, or dec fm. no complaints. does not want checked. GBS collected. 09/07/23 -?-?-?-?-?-?-?-?-?-?-?-?- 37w 0d 209 lb 148/83 138/87 Negative -?-?-?-?-?-?-?-?-?-?-?-?- Negative 140 37 Cephalic -?-?-?-?-?-?-?-?-?-?-?-?- SM- no vb lof go od fm no regular ctx elevated bps initially, repeat WNL, will check labs and home bps, monitor 09/12/23 -?-?-?-?-?-?--?-?-?-?-?-?- 37w 5d 211 lb 135/85 Negative -?-?-?-?-?-?-?-?-?-?-?-?- Negative 165 38 Cephalic -?-?-?-?-?-?-?-?-?-?-?-?- JV- bp still sli ghtly elevated. at home it is only 130's/70's but will order [facility] labs. 09/20/23 -?-?-?-?-?-?-?-?-?-?-?-?- 38w 6d 211 lb 4 oz 149/87 Nega tive -?-?-?-?-?-?-?-?-?-?-?-?- Negative 145 38 Cephalic 0 -?-?-?-?-?-?-?-?-?-?-?-?- 50 -3 JV bp's pe rsistently just over parameters. no proteinuria or pre-e symptoms. plan IOL tonight for gestational htn, cytotec ordered NST FHR Rate Baby A Baseline: 130 Variability:: Moderate Accelerations:: 15 x 15 Decelerations:: None NST Reactive:: Yes FHR Category:: Category I Uterine Activity:: irregular ROS Constitutional Constitutional: Reports systems reviewed and no addt'l complaints, except as documented Eyes Eyes: Denies change in vision ENT HEENT: Reports systems reviewed and no addt'l complaints, except as documented; Denies headache(s) Cardiovascular Cardiovascular: Reports systems reviewed and no addt'l complaints, except as documented; Denies chest pain or dyspnea Respiratory/Chest Respiratory/Chest: Reports systems reviewed and no addt'l complaints, except as documented Gastrointestinal Gastrointestinal: Reports systems reviewed and no addt'l complaints, except as documented; Denies abdominal pain Genitourinary Genitourinary: Reports systems reviewed and no addt'l complaints, except as documented, contractions Details: present (irregular) and movement Details : present; Denies dysuria or genital lesions Musculoskeletal Musculoskeletal: Reports systems reviewed and no addt'l complaints, except as documented Neurologic Neurologic: Reports systems reviewed and no addt'l complaints, except as documented Endocrine Endocrinology: Reports systems reviewed and no addt'l complaints, except as documented Vital Signs Vital Signs Vital Signs: 09/20/23 19:38 09/20/23 19:38 09/20/23 19:40 Temperature Temperature Source Temporal Pulse Rate 86 Respiratory Rate Blood Pressure 122/67 H BP Systolic 122 BP Diastolic 67 Pulse Ox 09/20/23 19:40 09/20/23 19:40 09/20/23 19:38 Temperature 98.7 F Temperature Source Pulse Rate Respiratory Rate 16 Blood Pressure BP Systolic BP Diastolic Pulse Ox 99 09/21/23 00:15 09/21/23 00:15 09/21/23 00:15 Temperature Temperature Source Temporal Pulse Rate 74 Respiratory Rate Blood Pressure 132/85 H BP Systolic 132 BP Diastolic 85 Pulse Ox 09/21/23 00:15 09/21/23 00:15 09/21/23 00:15 Temperature 98.6 F Temperature Source Pulse Rate Respiratory Rate 16 Blood Pressure BP Systolic BP Diastolic Pulse Ox 98 09/21/23 04:20 09/21/23 04:20 09/21/23 04:21 Temperature Temperature Source Temporal Pulse Rate 77 Respiratory Rate Blood Pressure 122/77 H BP Systolic 122 BP Diastolic 77 Pulse Ox 09/21/23 04:20 09/21/23 04:20 09/21/23 04:21 Temperature Temperature Source Pulse Rate 85 Respiratory Rate 16 Blood Pressure BP Systolic BP Diastolic Pulse Ox 97 09/21/23 04:20 09/21/23 04:20 09/21/23 07:18 Temperature 97.7 F L Temperature Source Pulse Rate Respiratory Rate Blood Pressure 132/82 H BP Systolic 132 BP Diastolic 82 Pulse Ox 97 09/21/23 07:18 09/21/23 07:18 09/21/23 07:18 Temperature Temperature Source Temporal Pulse Rate 71 Respiratory Rate 16 Blood Pressure BP Systolic BP Diastolic Pulse Ox 09/21/23 07:18 09/21/23 09:51 09/21/23 09:51 Temperature 97.8 F Temperature Source Pulse Rate 88 Respiratory Rate Blood Pressure 147/79 H BP Systolic 147 BP Diastolic 79 Pulse Ox 09/21/23 09:51 09/21/23 09:51 09/21/23 09:51 Temperature 97.7 F L Temperature Source Temporal Pulse Rate Respiratory Rate 16 Blood Pressure BP Systolic BP Diastolic Pulse Ox 09/21/23 11:00 09/21/23 11:00 09/21/23 11:00 Temperature Temperature Source Temporal Pulse Rate 80 Respiratory Rate Blood Pressure 129/71 H BP Systolic 129 BP Diastolic 71 Pulse Ox 09/21/23 11:00 09/21/23 11:00 09/21/23 12:00 Temperature 97.7 F L Temperature Source Pulse Rate Respiratory Rate 16 Blood Pressure 137/75 H BP Systolic 137 BP Diastolic 75 Pulse Ox 09/21/23 12:00 09/21/23 12:00 09/21/23 12:00 Temperature Temperature Source Temporal Pulse Rate 86 Respiratory Rate 16 Blood Pressure BP Systolic BP Diastolic Pulse Ox 09/21/23 12:00 09/21/23 14:47 09/21/23 14:47 Temperature 97.9 F Temperature Source Pulse Rate 76 Respiratory Rate Blood Pressure 135/76 H BP Systolic 135 BP Diastolic 76 Pulse Ox 09/21/23 14:47 09/21/23 14:47 09/21/23 14:47 Temperature 98.0 F Temperature Source Temporal Pulse Rate Respiratory Rate 16 Blood Pressure BP Systolic BP Diastolic Pulse Ox 09/21/23 15:16 09/21/23 15:16 04/11/24 15:16 Temperature Temperature Source Pulse Rate 79 Respiratory Rate Blood Pressure 155/80 H BP Systolic 155 BP Diastolic 80 Pulse Ox 99 09/21/23 15:20 09/21/23 15:21 09/21/23 15:20 Temperature Temperature Source Pulse Rate 80 82 Respiratory Rate Blood Pressure 157/92 H BP Systolic 157 BP Diastolic 92 Pulse Ox 09/21/23 15:21 09/21/23 15:25 09/21/23 15:26 Temperature Temperature Source Pulse Rate 76 Respiratory Rate Blood Pressure 149/81 H BP Systolic 149 BP Diastolic 81 Pulse Ox 99 09/21/23 15:25 09/21/23 15:26 09/21/23 15:31 Temperature Temperature Source Pulse Rate 74 Respiratory Rate Blood Pressure 144/73 H BP Systolic 144 BP Diastolic 73 Pulse Ox 99 09/21/23 15:31 09/21/23 15:31 09/21/23 15:36 Temperature Temperature Source Pulse Rate 80 81 Respiratory Rate Blood Pressure BP Systolic BP Diastolic Pulse Ox 97 09/21/23 15:36 09/21/23 15:37 09/21/23 15:37 Temperature Temperature Source Pulse Rate 76 Respiratory Rate Blood Pressure 131/65 H BP Systolic 131 BP Diastolic 65 Pulse Ox 97 09/21/23 15:41 09/21/23 15:42 09/21/23 15:41 Temperature Temperature Source Pulse Rate 92 85 Respiratory Rate Blood Pressure 135/69 H BP Systolic 135 BP Diastolic 69 Pulse Ox 09/21/23 15:42 09/21/23 15:45 09/21/23 15:45 Temperature Temperature Source Pulse Rate 78 Respiratory Rate Blood Pressure 128/62 H BP Systolic 128 BP Diastolic 62 Pulse Ox 96 09/21/23 15:47 09/21/23 15:47 09/21/23 15:52 Temperature Temperature Source Pulse Rate 82 Respiratory Rate Blood Pressure 135/66 H BP Systolic 135 BP Diastolic 66 Pulse Ox 97 09/21/23 15:52 09/21/23 15:52 09/21/23 15:37 Temperature Temperature Source Pulse Rate 76 Respiratory Rate 16 Blood Pressure BP Systolic BP Diastolic Pulse Ox 95 09/21/23 15:52 09/21/23 15:45 09/21/23 15:55 Temperature Temperature Source Pulse Rate Respiratory Rate 18 16 Blood Pressure 138/72 H BP Systolic 138 BP Diastolic 72 Pulse Ox 09/21/23 15:55 09/21/23 15:57 09/21/23 15:57 Temperature Temperature Source Pulse Rate 78 86 Respiratory Rate Blood Pressure BP Systolic BP Diastolic Pulse Ox 97 09/21/23 16:01 09/21/23 16:01 09/21/23 16:02 Temperature Temperature Source Pulse Rate 76 78 Respiratory Rate Blood Pressure 127/65 H BP Systolic 127 BP Diastolic 65 Pulse Ox 09/21/23 16:02 09/21/23 16:06 09/21/23 16:07 Temperature Temperature Source Pulse Rate 81 Respiratory Rate Blood Pressure 139/74 H BP Systolic 139 BP Diastolic 74 Pulse Ox 98 09/21/23 16:06 09/21/23 16:07 09/21/23 16:10 Temperature Temperature Source Pulse Rate 74 Respiratory Rate Blood Pressure 137/72 H BP Systolic 137 BP Diastolic 72 Pulse Ox 98 09/21/23 16:10 09/21/23 16:12 09/21/23 15:55 Temperature Temperature Source Pulse Rate 78 74 Respiratory Rate 16 Blood Pressure BP Systolic BP Diastolic Pulse Ox 09/21/23 16:12 09/21/23 16:10 09/21/23 16:06 Temperature Temperature Source Pulse Rate Respiratory Rate 18 16 Blood Pressure BP Systolic BP Diastolic Pulse Ox 97 09/21/23 16:01 Temperature Temperature Source Pulse Rate Respiratory Rate 16 Blood Pressure BP Systolic BP Diastolic Pulse Ox Weight Weight: 212 lb Body Mass Index (BMI) 36.3 Physical Exam Const alert, oriented x3, no apparent distress and healthy appearing HEENT normocephalic and moist oral mucous membranes Head and Scalp: atraumatic Neck full ROM, no lymphadenopathy, supple and thyroid normal General: trachea midline Lymph Lymphatic: no lymphadenopathy noted Chest inspection of chest normal Resp normal respiratory effort Cardio regular rate GI normal to inspection, nondistended, normoactive bowel sounds, soft to palpation and non-tender Inspection: gravid external exam normal Manual OB Exam: estimated gestational size appropriate, presentation cephalic, dilated, effaced and station Extremity normal to inspection General Extremity: Negative for edema Skin no rashes or lesions noted Neuro no focal motor deficits and deep tendon reflexes 2+ bilaterally Motor Exam: strength 5/5 throughout and clonus absent Psych mental status grossly normal Labs Labs Labs: Blood Type A POSITIVE Antibody Screen NEGATIVE Hct 34.0 % (37-47) L Hgb 11.3 g/dL (12.0-15.0) L Obstetrics Ultrasound Syphilis Total Ab Non-reactive Rubella IgG Antibody Reactive (Nonreactive) Hep Bs Antigen Non-Reactive (Nonreactive) Hepatitis C Antibody Non-Reactive (Nonreactive) Chlamydia DNA (HEATHER) Negative (Negative) N.gonorrhoeae DNA (HEATHER) Negative (Negative) HIV 1&2 Antibody Non-Reactive (Nonreactive) Glucose 1 Hr 50 gm 131 mg/dL (70-140) Rhogam given: No Assessment & Plan (1) Gestational hypertension: (2) History of pre-eclampsia: COMMENT: baby asa recommended, baseline labs. elevated bp in office 09/06- labs drawn, will follow bps at home. precautions reveiwed (3) Supervision of high-risk : QUALIFIERS: Trimester: first trimester Qualified Code(s): O09.91 - Supervision of high risk , unspecified, first trimester COMMENT: PRR, , NAMITA 09/28/23, boy PC Susan Alvin (4) : QUALIFIERS: Weeks of gestation: 38 weeks Qualified Code(s): Z3A.38 - 38 weeks gestation of COMMENT: GBS neg, normal anatomy, nl echo, declined NT, genetic & carrier testing (5) ASD (atrial septal defect): COMMENT: ASD repair 2002, nl echo and [facility] anatomy scan She is status post ASD repair in 2002 and last echocardiogram from August 2021 demonstrated no significant abnormalities. (6) Coarctation of aorta: COMMENT: no valvular disease, previously allowed to push with delivery. -status post cardiology consult. normal echo. cardiology to follow post due to slight elevation in lipids. PLAN: Plan Patient presents IOL, plan management for with cytotec. Pain management: plans epidural. GBS negative. Management of any complications: bernardtn I have reviewed the [facility] and made any clinically relevant updates.
--- NOTE | 2023-09-21 17:44 | PCM.PN.BLA ---
Progress Note arom clear fluid 100pm making good change cat I tracing epi PRN
[2023-09-21] MEDS: Ondansetron 4 MG/2 ML Vial IV (18:52)
--- NOTE | 2023-09-21 20:01 | EX.PCM.OBRPT ---
Assessment & Plan (1) Gestational hypertension: (2) History of pre-eclampsia: COMMENT: baby asa recommended, baseline labs. elevated bp in office 09/06- labs drawn, will follow bps at home. precautions reveiwed (3) Supervision of high-risk : QUALIFIERS: Trimester: first trimester Qualified Code(s): O09.91 - Supervision of high risk , unspecified, first trimester COMMENT: PRR, , NAMITA 09/28/23, boy PC Susan Alvin (4) : QUALIFIERS: Weeks of gestation: 38 weeks Qualified Code(s): Z3A.38 - 38 weeks gestation of COMMENT: GBS neg, normal anatomy, nl echo, declined NT, genetic & carrier testing (5) ASD (atrial septal defect): COMMENT: ASD repair 2002, nl echo and M anatomy scan She is status post ASD repair in 2002 and last echocardiogram from August 2021 demonstrated no significant abnormalities. (6) Coarctation of aorta: COMMENT: no valvular disease, previously allowed to push with delivery. -status post cardiology consult. normal echo. cardiology to follow post due to slight elevation in lipids. (7) Vaginal delivery: COMMENT: SM IOL GHTN 39 boy Maternal Data Information NAMITA Calculator Estimated Delivery Date Method Current WG Current Estimate 09/28/23 LMP (Certain) 39w 0d Vaginal Delivery Operative Information Date of Procedure: 09/21/23 Pre-Operative Diagnosis: see a/p diagnoses Post-Operative Diagnosis: same Surgery / Procedure Performed: Spontaneous Vaginal Delivery Type of Anesthesia: Epidural Special Medications: none Estimated Blood Loss: 200 Fluids Replaced: crystalloid Findings Description of Procedure: Patient began pushing and delivered the head in the ISHA presentation. The head was delivered atraumatically . The anterior and posterior shoulders delivered without complication followed by the rest of the and the was placed on the maternal abdomen. Delayed cord clamping was employed for approximately 60 seconds. Cord was clamped and cut and gentle traction was applied to the cord and the placenta delivered spontaneously immediately following it was noted to be intact with three-vessel cord. The perineum and vagina were inspected and noted to have a second degree perineal laceration which was repaired in the usual fashion with 3-0 vicryl rapide. EBL was 300. Patient and tolerated delivery well. Amniotic Fluid Description: Clear Placental Delivery Description: Spontaneous Placenta Disposition: [facility] Cord Vessel Description: 3 Vessels Cord Entanglement: None Delayed Cord Clamping: Yes Post Vaginal Delivery Medications Given After Delivery: IV Pitocin Episiotomy Description: None Complication Complications: None Procedures Urinary/Genital [id number]: [id number] Vaginal Delivery [facility]
--- NOTE | 2023-09-21 20:06 | DCINST_ITS ---
Discharge Instructions Diet Discharge Diet: No restrictions Activity Discharge Activity: Return to Normal Activity, May Not Drive (while taking narcotic pain medications.) and May Shower May resume sexual activity in: 4-6 weeks Dressing / Incision Call your doctor if your incision/area has: Continuous Slow Oozing, Sudden Increased Bleeding, Increased Pain/ Swelling, Increased Redness and Foul Smelling Discharge Follow Up Care Please Follow Up With: Eva Mcbride MD When: Call [phone] to make an appointment with your doctor in 6 weeks. If you had elevated blood pressure or 4th degree laceration, you will need to be seen in 2 weeks. Test Results: Test results from this visit will be discussed in further detail at your follow- up appointment, if applicable. Discharge Plan Admission Admit Date/Time: 09/20/23 18:56 Attending Provider: Sana Martinez Primary Care Provider: Brook Negro Discharge Orders/Prescriptions Prescriptions: No Action PNV [id number] 90 mg iron- 1 mg-200 mg capsule 1 cap PO DAILY aspirin [Adult Aspirin Regimen] 81 mg tablet,delayed release (DR/EC) 81 mg PO DAILY ondansetron HCl 4 mg tablet 4 mg PO Q6H PRN (Reason: nausea and vomiting) Qty: 30 2RF Referrals / Follow Up: Brook Negro MD [Primary Care Provider] - Disposition Disposition (needs filled in before D/C Order can be placed): Home, Self Care
[2023-09-21] MEDS: Oxytocin 15 Units/NS 250ml 15 UNITS/250 ML IV.SOLN 83 UNITS IV (20:29)
[2023-09-21] MEDS: Lactated Ringers 1,000 ML 999 ML IV (21:10)
[2023-09-21 21:34] LABS: Absolute Lymphocyte Count 2.11 X10^3/uL (0.83-4.51); Absolute Neutrophil Count 12.7 X10^3/uL (2.0-7.7); Basophil# 0.03 X10^3/uL; Basophil% 0.2 % (0-1); Eosinophil# 0.02 X10^3/uL; Eosinophils% 0.1 % (0-5); Hematocrit 32.1 % (37-47); Hemoglobin 10.9 g/dL (12.0-15.0); Lymphocyte # 2.11 X10^3/ul (0.83-4.51); Lymphocyte % 13.5 % (19-41); Mean Corpuscular Hgb 28.2 pg (27.0-32.0); Mean Corpuscular Volume 82.9 fL (81-99); Mean Platelet Vol. 10.1 fl (6.2-12.0); Monocyte# 0.71 X10^3/uL; Monocyte% 4.5 % (0-10); NRBC Flagged by Analyzer 0 % (0-5); Neutrophil # 12.66 X10^3/uL (2.7-7.7); Neutrophil % 81.1 % (47-70); Platelet Count 251 K/mm3 (150-450); RBC Distribution Width CV 13.3 % (11.6-14.6); RBC Distribution Width SD 39.9 fl (35.1-43.9); Red Blood Count 3.87 M/mm3 (4.2-5.4); White Blood Count 15.6 K/mm3 (4.4-11.0)
--- NOTE | 2023-09-21 23:46 | NURSING ---
report given to lb VARGHESE. that RN to assume care of pt at this time.
[2023-09-22] VITALS (10 sets, daily range): BP systolic 117–142; BP diastolic 63–75; PULSE 71–78; RESP 16–18; TEMP 36.3–36.9; O2SAT 93–98
[2023-09-22] MEDS: Naproxen 500 MG Tablet PO ×2 (02:01→16:21)
--- NOTE | 2023-09-22 05:42 | PN.OBGYN_ITS ---
Subjective Subjective Patient doing well without complaints. Tolerating PO. Ambulating and voiding without difficulty. feeding well. Denies chest pain, shortness of breath, calf pain/swelling, fevers, chills, lightheadedness. Objective Data Objective Data Vital Signs: Vital Signs Temp Pulse Resp BP Pulse Ox O2 Del Method 98.3 F 71 16 117/63 98 Room Air 09/22/23 05:10 09/22/23 05:10 09/22/23 05:10 09/22/23 05:10 09/21/23 22:52 09/22/23 05:10 Oxygen Delivery Method Room Air Weight: 212 lb Body Mass Index (BMI) 36.3 Intake & Output: Intake and Output for Last 24 Hours 09/20/23 09/21/23 09/22/23 23:59 23:59 23:59 Intake Total 2333.20 / 2333.20 Output Total 400 / 400 900 / 900 Balance 1933.20 / 1933.20 -900 / -900 Lab / Micro Data 09/21/23 21:15 Labs: Laboratory Results - last 24 hr 09/21/23 21:15: WBC 15.6 H, RBC 3.87 L, Hgb 10.9 L, Hct 32.1 L, MCV 82.9, MCH 28.2, MCHC 34.0, RDW Std Deviation 39.9, RDW Coeff of Od[place] 13.3, Plt Count 251, MPV 10.1, Immature Gran % (Auto) 0.600, Neut % (Auto) 81.1 H, Lymph % (Auto) 13.5 L, [place] % (Auto) 4.5, Eos % (Auto) 0.1, Baso % (Auto) 0.2, Absolute Neuts (auto) 12.7 H, Absolute Lymphs (auto) 2.11, Nucleated RBC % 0 ROS Constitutional Constitutional: Reports systems reviewed and no addt'l complaints, except as documented Cardiovascular Cardiovascular: Reports systems reviewed and no addt'l complaints, except as documented Respiratory/Chest Respiratory/Chest: Reports systems reviewed and no addt'l complaints, except as documented Gastrointestinal Gastrointestinal: Reports systems reviewed and no addt'l complaints, except as documented Physical Exam Const alert, oriented x3 and no apparent distress HEENT Head and Scalp: atraumatic Resp normal respiratory effort GI soft to palpation and non-tender Bimanual Exam - Vag & Uterus: uterus non-tender Uterus Palpation: uterus fundus firm (below Umbilicus) Assessment & Plan (1) Vaginal delivery: COMMENT: SM IOL GHTN 39 boy (2) Gestational hypertension: (3) ASD (atrial septal defect): COMMENT: ASD repair 2002, nl echo and [facility] anatomy scan She is status post ASD repair in 2002 and last echocardiogram from August 2021 demonstrated no significant abnormalities. (4) Coarctation of aorta: COMMENT: no valvular disease, previously allowed to push with delivery. -status post cardiology consult. normal echo. cardiology to follow post due to slight elevation in lipids. PLAN: Plan s/p PPD # 1 1. routine post delivery care 2. breast feeding- support given 3. rh positive 4. rubella immune
[2023-09-22] MEDS: Acetaminophen 500 MG Tablet 1000 MG PO (06:58)
[2023-09-22] MEDS: Senna/Docusate Sodium 1 Tablet PO ×2 (06:58→20:26)
--- NOTE | 2023-09-26 15:59 | NURSING ---
Follow up phone call performed-- pt. denies s+s of complications. Vaginal bleeding WNL. going well, saw on Monday. No questions or concerns.
== END 2023-09-22 21:35 | disposition home or self-care (01) | DRG 806 ==
PROVIDERS: Obstetrics & Gynecology; Admitting Provider Obstetrics & Gynecology; PCP Family Medicine; Visit Provider Obstetrics & Gynecology
DX: O13.4 Gestational [pregnancy-induced] hypertension without significant proteinuria, complicating childbirth (principal); Z37.0 Single live birth; Q21.10 Atrial septal defect, unspecified; Q25.1 Coarctation of aorta; O70.1 Second degree perineal laceration during delivery; O99.824 Streptococcus B carrier state complicating childbirth; Z79.82 Long term (current) use of aspirin; O99.893 Other specified diseases and conditions complicating puerperium; Z87.59 Personal history of other complications of pregnancy, childbirth and the puerperium; Z3A.38 38 weeks gestation of pregnancy
CPT/HCPCS: 59025; 59050; 85025; 86780; 86850; 86900; 86901; 99221; J7120; G0378; J2405

== ENCOUNTER → 2023-09-29 | Outpatient (CLI) | payer OTHER, SELFPAY ==
[2023-09-29 14:52] LABS: Absolute Lymphocyte Count 2.25 X10^3/uL (0.83-4.51); Absolute Neutrophil Count 6.1 X10^3/uL (2.0-7.7); Basophil# 0.03 X10^3/uL; Basophil% 0.3 % (0-1); Eosinophil# 0.16 X10^3/uL; Eosinophils% 1.8 % (0-5); Hematocrit 35.4 % (37-47); Hemoglobin 11.4 g/dL (12.0-15.0); Lymphocyte # 2.25 X10^3/ul (0.83-4.51); Lymphocyte % 24.9 % (19-41); Mean Corp Hgb Conc 32.2 g/dL (32-36); Mean Corpuscular Hgb 27.7 pg (27.0-32.0); Mean Corpuscular Volume 85.9 fL (81-99); Mean Platelet Vol. 9.2 fl (6.2-12.0); Monocyte# 0.44 X10^3/uL; Monocyte% 4.9 % (0-10); NRBC Flagged by Analyzer 0 % (0-5); Neutrophil # 6.06 X10^3/uL (2.7-7.7); Neutrophil % 67.1 % (47-70); Platelet Count 508 K/mm3 (150-450); RBC Distribution Width CV 13.2 % (11.6-14.6); RBC Distribution Width SD 41.1 fl (35.1-43.9); Red Blood Count 4.12 M/mm3 (4.2-5.4)
[2023-09-29 16:27] LABS: ALB/GLOB Ratio 0.7 RATIO (0.9-2.4); AST(SGOT) 24 U/L (15-37); Alanine Aminotransfer ALT/SGPT 39 U/L (13-56); Albumin, Serum 2.9 g/dL (3.2-5.0); Alkaline Phosphatase 147 U/L (45-117); Anion Gap 7 (5-15); BUN 12 mg/dL (7-18); BUN/Creat Ratio 20.9 RATIO (10-20); Chloride 107 mmol/L (98-107); Creatinine, Serum 0.58 mg/dL (0.55-1.02); EST Glomerular Filtration Rate 134 mL/min (>60); Est Glom Filt Rate - Afr Amer 162 mL/min (>60); Globulin 4.1 g/dL (2.2-4.2); Glucose 74 mg/dL (74-106); Potassium 3.7 mmol/L (3.5-5.1); Sodium Level 141 mmol/L (136-145)
== END | disposition home or self-care (01) ==
PROVIDERS: Referring Provider Obstetrics & Gynecology; Visit Provider Obstetrics & Gynecology
DX: O13.9 Gestational [pregnancy-induced] hypertension without significant proteinuria, unspecified trimester (principal); Z3A.00 Weeks of gestation of pregnancy not specified
CPT/HCPCS: 36415; 80053; 85025

== ENCOUNTER → 2023-10-02 | Outpatient (CLI) | payer OTHER, SELFPAY ==
[2023-10-02 13:04] LABS: Absolute Lymphocyte Count 2.23 X10^3/uL (0.83-4.51); Absolute Neutrophil Count 5.8 X10^3/uL (2.0-7.7); Basophil# 0.02 X10^3/uL; Basophil% 0.2 % (0-1); Eosinophil# 0.08 X10^3/uL; Eosinophils% 0.9 % (0-5); Hematocrit 34.8 % (37-47); Hemoglobin 11.2 g/dL (12.0-15.0); Lymphocyte # 2.23 X10^3/ul (0.83-4.51); Lymphocyte % 26.1 % (19-41); Mean Corp Hgb Conc 32.2 g/dL (32-36); Mean Corpuscular Hgb 27.1 pg (27.0-32.0); Mean Corpuscular Volume 84.1 fL (81-99); Mean Platelet Vol. 8.8 fl (6.2-12.0); Monocyte# 0.35 X10^3/uL; Monocyte% 4.1 % (0-10); NRBC Flagged by Analyzer 0 % (0-5); Neutrophil # 5.82 X10^3/uL (2.7-7.7); Neutrophil % 68.2 % (47-70); Platelet Count 513 K/mm3 (150-450); RBC Distribution Width CV 13.2 % (11.6-14.6); RBC Distribution Width SD 40.2 fl (35.1-43.9); Red Blood Count 4.14 M/mm3 (4.2-5.4); White Blood Count 8.5 K/mm3 (4.4-11.0)
[2023-10-02 13:44] LABS: ALB/GLOB Ratio 0.8 RATIO (0.9-2.4); AST(SGOT) 17 U/L (15-37); Alanine Aminotransfer ALT/SGPT 33 U/L (13-56); Albumin, Serum 3.1 g/dL (3.2-5.0); Alkaline Phosphatase 141 U/L (45-117); Anion Gap 7 (5-15); BUN 9 mg/dL (7-18); BUN/Creat Ratio 14.6 RATIO (10-20); Chloride 106 mmol/L (98-107); Creatinine, Serum 0.62 mg/dL (0.55-1.02); EST Glomerular Filtration Rate 124 mL/min (>60); Est Glom Filt Rate - Afr Amer 150 mL/min (>60); Globulin 4.1 g/dL (2.2-4.2); Glucose 102 mg/dL (74-106); LDH 265 U/L (84-246); Potassium 3.7 mmol/L (3.5-5.1); Protein, Total 7.2 g/dL (6.4-8.2); Sodium Level 137 mmol/L (136-145); Uric Acid 5.2 mg/dL (2.6-6.0)
== END | disposition home or self-care (01) ==
LOC: PAVLAB 12:50
PROVIDERS: Obstetrics & Gynecology; Visit Provider Obstetrics & Gynecology
DX: O13.9 Gestational [pregnancy-induced] hypertension without significant proteinuria, unspecified trimester (principal)
CPT/HCPCS: 36415; 80053; 83615; 84550; 85025

== ENCOUNTER → 2024-12-04 | Outpatient (CLI) | payer OTHER, SELFPAY ==
[2024-12-09 07:31] LABS: HPV Reflexed? NOT INDICATED
== END | disposition home or self-care (01) ==
LOC: LABSPEC 16:24
PROVIDERS: PCP Family Medicine; Referring Provider Nurse Practitioner Family; Visit Provider Nurse Practitioner Family
DX: Z12.4 Encounter for screening for malignant neoplasm of cervix (principal)
CPT/HCPCS: 88175; G0145

== ENCOUNTER → 2025-04-16 | Outpatient (CLI) | payer OTHER, SELFPAY ==
--- NOTE | 2025-04-16 10:57 | ECHOCS_ITS ---
Reason For Study Reason For Study: ASD REPAIR Procedure This was a 2D Doppler, Color Flow transthoracic echocardiogram. Contrast injection was performed. Exam performed in department. Left Ventricle Normal LV size. Left ventricular systolic function is normal. The left ventricular ejection fraction is 60 %. Normal diastololic function. No regional wall motion abnormalities noted. Right Ventricle Normal RV size. Atria Normal left atrium. Normal right atrium. Mitral Valve Normal mitral valve. Mild (1+) mitral valve insufficiency. Tricuspid Valve Normal tricuspid valve. Trivial tricuspid valve insufficiency. Unable to estimate RV systolic pressure due to insufficient tricuspid regurgitant envelope. Aortic Valve Trisinus/trileaflet aortic valve. Pulmonic Valve Normal pulmonic valve. Mild (1+) pulmonic valve insufficiency. Great Vessels Normal sized aortic root. Mild coartcation post subclavian with peak velocity of 2.37 m/sec. The pulmonary artery is normal size. The inferior vena cava is not dilated. and collapses. Pericardium/Pleural No pericardial effusion. Medication 22 gauge I.V. with prn adaptor inserted into right arm. Diluted definity 1ml given slow IV push to enhance endocardial definition. MMode/2D Measurements & Calculations LVIDd: 5.0 cm IVSd: 0.74 cm Ao root diam: 2.6 cm LVIDs: 3.7 cm LVPWd: 0.74 cm RVDd: 3.4 cm FS: 24.9 % LAV(MOD-bp): 60.2 ml LVAd ap4: 37.3 cm2 SV(MOD-sp4): 73.0 ml LAV(MOD-bp) Indexed: 32.2 ml/m2 LVLd ap4: 8.5 cm SI(MOD-sp4): 39.0 ml/m2 LAV(MOD-sp2): 60.0 ml EDV(MOD-sp4): 136.5 ml LAV(MOD-sp4): 51.8 ml EDV(sp4-el): 138.8 ml LVAs ap4: 22.6 cm2 LVLs ap4: 6.6 cm ESV(MOD-sp4): 63.5 ml ESV(sp4-el): 65.7 ml EF(MOD-sp4): 53.5 % EF(sp4-el): 52.7 % SV(sp4-el): 73.1 ml LA A4 area: 19.1 cm2 LA dimension(2D): 3.6 cm RA A4 area: 15.5 cm2 TAPSE: 1.7 cm Time Measurements MV dec time: 0.24 sec Doppler Measurements & Calculations MV E max jesus: 104.4 cm/sec Lat Peak E' Jesus: 23.0 cm/sec Med Peak E' Jesus: 12.5 cm/sec MV A max jesus: 53.2 cm/sec E/E' lat: 4.5 E/E' med: 8.4 MV E/A: 2.0 MV V2 max: 125.2 cm/sec MV P1/2t max jesus: 125.2 cm/sec Ao V2 max: 138.8 cm/sec MV max P.3 mmHg MV P1/2t: 84.8 msec Ao max P.7 mmHg MV V2 mean: 55.3 cm/sec MV dec slope: 432.7 cm/sec2 Ao V2 mean: 99.6 cm/sec MV mean P.6 mmHg MVA(P1/2t): 2.6 cm2 Ao mean P.5 mmHg MV V2 VTI: 36.9 cm Ao V2 VTI: 32.9 cm AV (velocity ratio): 0.90 LV V1 max: 125.0 cm/sec PA V2 max: 79.7 cm/sec LV V1 max P.3 mmHg LV V1 mean P.0 mmHg LV V1 mean: 95.7 cm/sec LV V1 VTI: 29.5 cm ECHO/Echo Complete W/ Contrast Interpretation Summary The left ventricular ejection fraction is 60 %. Normal diastololic function. Left ventricular systolic function is normal. Contrast injection was performed. Ordering Physician: Tatyana Lucero Referring Physician: Tatyana Lucero Performed By: Aime Byers RCS
== END | disposition home or self-care (01) ==
LOC: CVS 10:56
PROVIDERS: PCP Family Medicine; Referring Provider Nurse Practitioner Gerontology; Visit Provider Nurse Practitioner Gerontology
DX: R01.1 Cardiac murmur, unspecified (principal); Q21.10 Atrial septal defect, unspecified; Q25.1 Coarctation of aorta
CPT/HCPCS: 93306; Q9957; A4216; C8929